=== PATIENT | female | born 1965 | race American Indian/Alaskan Native ===

== ENCOUNTER 2017-04-21 10:14 | Outpatient (CLI) | payer MEDICARE ==
--- NOTE | 2017-04-21 11:27 | XRay Report ---
CERVICAL SPINE: History: Cervicalgia. Views of the cervical spine demonstrate normal bony alignment, vertebral height and interspace distances. Oblique views show patent foramina and normal apophyseal joint alignment. The prevertebral soft tissues are not thickened. IMPRESSION: Cervical spine within normal limits.
--- NOTE | 2017-04-21 11:27 | XRay Report ---
ROUTINE CHEST, TWO VIEWS: HISTORY: Cough. The trachea, heart, mediastinal contour, lung cervantes and bony thorax are unremarkable. IMPRESSION: Unremarkable chest x-ray.
--- NOTE | 2017-04-21 11:28 | XRay Report ---
LUMBOSACRAL SPINE, FIVE VIEWS: HISTORY: Lower back pain. Mild levocurvature to the lumbar spine is identified. There is normal height and alignment of the vertebral bodies otherwise. There is partial sacralization of L5 which a congenital finding. No evidence for compression deformity, subluxation or bone lesion. The disc spaces are within normal limits. Minimal diffuse facet arthropathy is identified. The oblique images demonstrate no evidence for high-grade neural foraminal narrowing or partial defect. IMPRESSION: Mild levoscoliosis of the lumbar spine with mild degenerative changes. Congenital partial sacralization of L5.
== END 2017-04-21 10:15 | disposition home or self-care (01) ==
LOC: XRAY 10:14
PROVIDERS: ATTEND Urology
DX: M47.896 Other spondylosis, lumbar region (principal); M41.86 Other forms of scoliosis, lumbar region; M43.8X6 Other specified deforming dorsopathies, lumbar region; M12.88 Other specific arthropathies, not elsewhere classified, other specified site; M54.2 Cervicalgia; R05 Cough
CPT/HCPCS: 71046; 72050; 72110

== ENCOUNTER 2018-04-18 11:45 | Emergency (ER) | payer MEDICARE ==
[2018-04-18 11:50] VITALS: BP 155/92
--- NOTE | 2018-04-18 12:29 | Emergency Department Report ---
- General Chief Complaint: Upper Respiratory Infection Stated Complaint: FLU LIKE Time Seen by Provider: 04/18/18 12:18 Source: patient Mode of arrival: Ambulatory Limitations: No Limitations - History of Present Illness Initial Comments: Patient is a 52-year-old female who is complaining of cough congestion and body aches for the past 2 weeks. Patient states that her cough is nonproductive but she has been congested and feels that she could cough something up. Patient complaining of her ears popping as well. Patient states 2 days ago she had some vomiting but this is resolved. Patient has decreased appetite and some fatigue as well. Patient has a history of cigarette smoking. - Related Data Previous Rx's Medication Instructions Recorded Last Taken Type ALBUTEROL Inhaler (OR & NICU) 2 puff IH QID PRN #1 inhalation 07/28/14 Unknown Rx [ProAir HFA Inhaler] Azithromycin [Zithromax Z-ALEXUS] 250 mg PO DAILY #6 tablet 07/28/14 Unknown Rx Ibuprofen [Motrin] 800 mg PO Q8H PRN #30 tablet 07/28/14 Unknown Rx Prednisone [Prednisone 10 mg 10 mg PO .TAPER #1 tab.ds.pk 07/28/14 Unknown Rx (6-Day Pack, 21 Tabs)] Cyclobenzaprine [Flexeril 10 MG 10 mg PO TID PRN #15 tablet 10/20/14 Unknown Rx TAB] Ibuprofen [Motrin 800 MG tab] 800 mg PO Q8HR PRN #30 tablet 10/20/14 Unknown Rx Nitrofurantoin [place]/M-Cryst 100 mg PO Q12HR #14 capsule 12/26/15 Unknown Rx [Macrobid CAP] traMADol [Ultram] 50 mg PO Q6HR PRN #30 tablet 12/26/15 Unknown Rx ALBUTEROL Inhaler (OR & NICU) 2 puff IH QID PRN #1 inhalation 04/18/18 Unknown Rx [ProAir HFA Inhaler] Azithromycin [Zithromax Z-ALEXUS] 250 mg PO DAILY #6 tablet 04/18/18 Unknown Rx Fluticasone [Flonase] 1 spray NS QDAY #1 bottle 04/18/18 Unknown Rx HYDROcodone/APAP 5-325 [[place] 1 each PO Q4HR PRN #12 tablet 04/18/18 Unknown Rx 5/325] predniSONE [Deltasone] 20 mg PO QDAY #5 tab 04/18/18 Unknown Rx Allergies Allergy/AdvReac Type Severity Reaction Status Date / Time aspirin Allergy Hives Verified 04/18/18 11:48 ED Review of Systems ROS: Stated complaint: FLU LIKE Other details as noted in HPI Comment: All other systems reviewed and negative ED Past Medical Hx - Past Medical History Hx Asthma: Yes Additional medical history: CHRONIC BACK PAIN - Surgical History Additional Surgical History: X 3. RIGHT ARM SURGERY - Social History Smoking Status: Never Smoker Substance Use Type: None - Medications Home Medications: Home Medications Medication Instructions Recorded Confirmed Last Taken Type ALBUTEROL Inhaler (OR & NICU) 2 puff IH QID PRN #1 inhalation 07/28/14 Unknown Rx [ProAir HFA Inhaler] Azithromycin [Zithromax Z-ALEXUS] 250 mg PO DAILY #6 tablet 07/28/14 Unknown Rx Ibuprofen [Motrin] 800 mg PO Q8H PRN #30 tablet 07/28/14 Unknown Rx Prednisone [Prednisone 10 mg 10 mg PO .TAPER #1 tab.ds.pk 07/28/14 Unknown Rx (6-Day Pack, 21 Tabs)] Cyclobenzaprine [Flexeril 10 MG 10 mg PO TID PRN #15 tablet 10/20/14 Unknown Rx TAB] Ibuprofen [Motrin 800 MG tab] 800 mg PO Q8HR PRN #30 tablet 10/20/14 Unknown Rx Nitrofurantoin [place]/M-Cryst 100 mg PO Q12HR #14 capsule 12/26/15 Unknown Rx [Macrobid CAP] traMADol [Ultram] 50 mg PO Q6HR PRN #30 tablet 12/26/15 Unknown Rx ALBUTEROL Inhaler (OR & NICU) 2 puff IH QID PRN #1 inhalation 04/18/18 Unknown Rx [ProAir HFA Inhaler] Azithromycin [Zithromax Z-ALEXUS] 250 mg PO DAILY #6 tablet 04/18/18 Unknown Rx Fluticasone [Flonase] 1 spray NS QDAY #1 bottle 04/18/18 Unknown Rx HYDROcodone/APAP 5-325 [[place] 1 each PO Q4HR PRN #12 tablet 04/18/18 Unknown Rx 5/325] predniSONE [Deltasone] 20 mg PO QDAY #5 tab 04/18/18 Unknown Rx ED Physical Exam - General Limitations: No Limitations General appearance: alert, in no apparent distress - Head Head exam: Present: atraumatic, normocephalic - Eye Eye exam: Present: normal appearance, PERRL, EOMI - ENT ENT exam: Present: normal orophraynx, mucous membranes moist, TM's normal bilaterally - Neck Neck exam: Present: normal inspection - Respiratory Respiratory exam: Present: normal lung sounds bilaterally. Absent: respiratory distress, wheezes, rales, rhonchi, stridor, chest wall tenderness - Cardiovascular Cardiovascular Exam: Present: regular rate, normal rhythm, normal heart sounds. Absent: systolic murmur, diastolic murmur, rubs, gallop - GI/Abdominal GI/Abdominal exam: Present: soft, normal bowel sounds. Absent: distended, tenderness, guarding, rebound - Extremities Exam Extremities exam: Present: normal inspection - Back Exam Back exam: Present: normal inspection - Neurological Exam Neurological exam: Present: alert, oriented X3 - Psychiatric Psychiatric exam: Present: normal affect, normal mood - Skin Skin exam: Present: warm, dry, intact, normal color. Absent: rash ED Course Vital Signs 04/18/18 11:48 Temperature 97.9 F Pulse Rate 80 Respiratory 18 Rate Blood Pressure 155/92 O2 Sat by Pulse 100 Oximetry ED Medical Decision Making - Medical Decision Making Patient with flulike symptoms however her symptoms present for approximately 2 weeks. Patient's lungs are clear to auscultation and she is 100% on room air making pneumonia less likely however, the duration of symptoms patient will be started on Z-Alexus case there is a viral syndrome that now has had a superimposed bacterial infection. Patient given this was symptomatic relief she'll be discharged home. Critical care attestation.: If time is entered above; I have spent that time in minutes in the direct care of this critically ill patient, excluding procedure time. ED Disposition Clinical Impression: Upper respiratory infection Qualifiers: URI type: unspecified URI Qualified Code(s): J06.9 - Acute upper respiratory infection, unspecified Disposition: - TO HOME OR SELFCARE Is pt being admited?: No Does the pt Need Aspirin: No Condition: Stable Instructions: Upper Respiratory Infection (ED) Time of Disposition: 12:29
== END 2018-04-18 12:34 | disposition home or self-care (01) ==
LOC: ED 11:45
DX: J06.9 Acute upper respiratory infection, unspecified (principal); J45.909 Unspecified asthma, uncomplicated; Z88.6 Allergy status to analgesic agent
CPT/HCPCS: 99282

== ENCOUNTER 2018-08-11 07:39 | Emergency (ER) | payer MEDICARE ==
[2018-08-11 07:46] VITALS: BP 139/88
--- NOTE | 2018-08-11 08:27 | XRay Report ---
RIGHT HAND, 3 views: History: Pain and swelling after injury. The bony architecture is intact. Bony alignment is normal. No soft tissue abnormalities are seen. The joint spaces appear preserved. IMPRESSION: Normal right hand.
[2018-08-11] MEDS ORDERED: ZOFRAN ODT PO ONE (08:47)
[2018-08-11] MEDS ORDERED: TYLENOL #3 PO ONE (08:47)
--- NOTE | 2018-08-11 08:53 | Emergency Department Report ---
ED General Adult HPI - General Chief complaint: Extremity Injury, Upper Stated complaint: RT HAND INJURY/PAIN Time Seen by Provider: 08/11/18 08:24 Source: patient Mode of arrival: Ambulatory Limitations: No Limitations - History of Present Illness Initial comments: Patient presents to the emergency department with a chief complaint right hand pain. Patient states she was at the grocery store yesterday when a shelf fell onto her hand. Patient states she is able to move the hand but is very painful. -: Sudden Location: upper extremity Radiation: non-radiation Severity scale (0 -10): 6 Quality: sharp, constant Consistency: constant Improves with: rest Worsens with: movement Associated Symptoms: denies other symptoms Treatments Prior to Arrival: none - Related Data Previous Rx's Medication Instructions Recorded Last Taken Type ALBUTEROL Inhaler (OR & NICU) 2 puff IH QID PRN #1 inhalation 07/28/14 Unknown Rx [ProAir HFA Inhaler] Azithromycin [Zithromax Z-ALEXUS] 250 mg PO DAILY #6 tablet 07/28/14 Unknown Rx Ibuprofen [Motrin] 800 mg PO Q8H PRN #30 tablet 07/28/14 Unknown Rx Prednisone [Prednisone 10 mg 10 mg PO .TAPER #1 tab.ds.pk 07/28/14 Unknown Rx (6-Day Pack, 21 Tabs)] Cyclobenzaprine [Flexeril 10 MG 10 mg PO TID PRN #15 tablet 10/20/14 Unknown Rx TAB] Ibuprofen [Motrin 800 MG tab] 800 mg PO Q8HR PRN #30 tablet 10/20/14 Unknown Rx Nitrofurantoin [place]/M-Cryst 100 mg PO Q12HR #14 capsule 12/26/15 Unknown Rx [Macrobid CAP] traMADol [Ultram] 50 mg PO Q6HR PRN #30 tablet 12/26/15 Unknown Rx ALBUTEROL Inhaler (OR & NICU) 2 puff IH QID PRN #1 inhalation 04/18/18 Unknown Rx [ProAir HFA Inhaler] Azithromycin [Zithromax Z-ALEXUS] 250 mg PO DAILY #6 tablet 04/18/18 Unknown Rx Fluticasone [Flonase] 1 spray NS QDAY #1 bottle 04/18/18 Unknown Rx HYDROcodone/APAP 5-325 [[place] 1 each PO Q4HR PRN #12 tablet 04/18/18 Unknown Rx 5/325] predniSONE [Deltasone] 20 mg PO QDAY #5 tab 04/18/18 Unknown Rx Acetaminophen/Codeine [Tylenol 1 tab PO Q6H PRN #15 tab 08/11/18 Unknown Rx /Codeine # 3 tab] Allergies Allergy/AdvReac Type Severity Reaction Status Date / Time aspirin Allergy Hives Verified 04/18/18 11:48 ED Review of Systems ROS: Stated complaint: RT HAND INJURY/PAIN Other details as noted in HPI Constitutional: denies: chills, fever Eyes: denies: eye pain, eye discharge, vision change ENT: denies: ear pain, throat pain Respiratory: denies: cough, shortness of breath, wheezing Cardiovascular: denies: chest pain, palpitations Endocrine: no symptoms reported Gastrointestinal: denies: abdominal pain, nausea, diarrhea Genitourinary: denies: urgency, dysuria, discharge Musculoskeletal: other (right hand). denies: back pain, joint swelling, arthralgia Skin: denies: rash, lesions Neurological: denies: headache, weakness, paresthesias Psychiatric: denies: anxiety, depression Hematological/Lymphatic: denies: easy bleeding, easy bruising ED Past Medical Hx - Past Medical History Previous Medical History?: Yes Hx Asthma: Yes Additional medical history: CHRONIC BACK PAIN - Surgical History Past Surgical History?: Yes Additional Surgical History: X 3. RIGHT ARM SURGERY - Social History Smoking Status: Never Smoker Substance Use Type: None - Medications Home Medications: Home Medications Medication Instructions Recorded Confirmed Last Taken Type ALBUTEROL Inhaler (OR & NICU) 2 puff IH QID PRN #1 inhalation 07/28/14 Unknown Rx [ProAir HFA Inhaler] Azithromycin [Zithromax Z-ALEXUS] 250 mg PO DAILY #6 tablet 07/28/14 Unknown Rx Ibuprofen [Motrin] 800 mg PO Q8H PRN #30 tablet 07/28/14 Unknown Rx Prednisone [Prednisone 10 mg 10 mg PO .TAPER #1 tab.ds.pk 07/28/14 Unknown Rx (6-Day Pack, 21 Tabs)] Cyclobenzaprine [Flexeril 10 MG 10 mg PO TID PRN #15 tablet 10/20/14 Unknown Rx TAB] Ibuprofen [Motrin 800 MG tab] 800 mg PO Q8HR PRN #30 tablet 10/20/14 Unknown Rx Nitrofurantoin [place]/M-Cryst 100 mg PO Q12HR #14 capsule 12/26/15 Unknown Rx [Macrobid CAP] traMADol [Ultram] 50 mg PO Q6HR PRN #30 tablet 12/26/15 Unknown Rx ALBUTEROL Inhaler (OR & NICU) 2 puff IH QID PRN #1 inhalation 04/18/18 Unknown Rx [ProAir HFA Inhaler] Azithromycin [Zithromax Z-ALEXUS] 250 mg PO DAILY #6 tablet 04/18/18 Unknown Rx Fluticasone [Flonase] 1 spray NS QDAY #1 bottle 04/18/18 Unknown Rx HYDROcodone/APAP 5-325 [[place] 1 each PO Q4HR PRN #12 tablet 04/18/18 Unknown Rx 5/325] predniSONE [Deltasone] 20 mg PO QDAY #5 tab 04/18/18 Unknown Rx Acetaminophen/Codeine [Tylenol 1 tab PO Q6H PRN #15 tab 08/11/18 Unknown Rx /Codeine # 3 tab] ED Physical Exam - General Limitations: No Limitations General appearance: alert, in no apparent distress - Head Head exam: Present: atraumatic, normocephalic - ENT ENT exam: Present: mucous membranes moist - Neck Neck exam: Present: normal inspection - Respiratory Respiratory exam: Present: normal lung sounds bilaterally. Absent: respiratory distress - Cardiovascular Cardiovascular Exam: Present: regular rate, normal rhythm, other (patient has good radial and ulnar pulses). Absent: systolic murmur, diastolic murmur, rubs, gallop - Extremities Exam Extremities exam: Present: other (TTP of the metacarpels of the right hand; mild swelling; no ttp of anatomical snuff box) - Back Exam Back exam: Present: normal inspection - Neurological Exam Neurological exam: Present: alert, oriented X3, CN II-XII intact. Absent: motor sensory deficit - Psychiatric Psychiatric exam: Present: normal affect, normal mood - Skin Skin exam: Present: warm, dry, intact, normal color. Absent: rash ED Course Vital Signs 08/11/18 07:40 Temperature 98.1 F Pulse Rate 80 Respiratory 16 Rate Blood Pressure 139/88 O2 Sat by Pulse 100 Oximetry ED Medical Decision Making - Medical Decision Making Discussed results with patient Fredo wrap placed Critical care attestation.: If time is entered above; I have spent that time in minutes in the direct care of this critically ill patient, excluding procedure time. ED Disposition Clinical Impression: Hand pain Disposition: [id number]-01 TO HOME OR SELFCARE Is pt being admited?: No Does the pt Need Aspirin: No Condition: Stable Instructions: Hand Sprain (ED) Additional Instructions: return if worse Prescriptions: Acetaminophen/Codeine [Tylenol /Codeine # 3 tab] 1 tab PO Q6H PRN #15 tab PRN Reason: pain Referrals: LYNETTE PRESLEY MD [Primary Care Provider] - 3-5 Days [facility] [Provider Group] - 3-5 Days [facility] [Provider Group] - 3-5 Days Time of Disposition: 08:52
== END 2018-08-11 09:15 | disposition home or self-care (01) ==
LOC: ED 07:39
DX: M79.641 Pain in right hand (principal); J45.909 Unspecified asthma, uncomplicated; M54.9 Dorsalgia, unspecified; G89.29 Other chronic pain; Z88.6 Allergy status to analgesic agent
CPT/HCPCS: 99283; Q0162

== ENCOUNTER 2018-12-28 10:37 | Emergency (ER) | payer MEDICARE ==
[2018-12-28] MEDS ORDERED: MORPHINE 4 MG/1 ML INJ IV ONE ×2 (12:25→15:26)
[2018-12-28] MEDS ORDERED: ONDANSETRON 4 MG/2 ML INJ IV ONE (12:25)
[2018-12-28] MEDS ORDERED: SODIUM CHLORIDE 0.9% 1000 ML 1,000 ML IV ONE (12:25)
--- NOTE | 2018-12-28 12:27 | Emergency Department Report ---
ED General Adult HPI - General Chief complaint: Abdominal Pain Stated complaint: POSS KIDNEY STONES/PAIN Time Seen by Provider: 12/28/18 11:39 Source: patient Mode of arrival: Ambulatory Limitations: No Limitations - History of Present Illness Initial comments: She presents to emergency department with a chief complaint of right flank pain that has been present for the last 3 days. Patient describes the pain as sharp in nature with radiation into her groin. Patient denies any chest pain, shortness of breath, or headache. -: Sudden Location: abdomen Radiation: other (groin) Severity scale (0 -10): 8 Quality: sharp Consistency: constant, colicky Improves with: none Worsens with: none Associated Symptoms: denies other symptoms Treatments Prior to Arrival: none - Related Data Previous Rx's Medication Instructions Recorded Last Taken Type ALBUTEROL Inhaler (OR & NICU) 2 puff IH QID PRN #1 inhalation 07/28/14 Unknown Rx [ProAir HFA Inhaler] Azithromycin [Zithromax Z-ALEXUS] 250 mg PO DAILY #6 tablet 07/28/14 Unknown Rx Ibuprofen [Motrin] 800 mg PO Q8H PRN #30 tablet 07/28/14 Unknown Rx Prednisone [Prednisone 10 mg 10 mg PO .TAPER #1 tab.ds.pk 07/28/14 Unknown Rx (6-Day Pack, 21 Tabs)] Cyclobenzaprine [Flexeril 10 MG 10 mg PO TID PRN #15 tablet 10/20/14 Unknown Rx TAB] Ibuprofen [Motrin 800 MG tab] 800 mg PO Q8HR PRN #30 tablet 10/20/14 Unknown Rx Nitrofurantoin [place]/M-Cryst 100 mg PO Q12HR #14 capsule 12/26/15 Unknown Rx [Macrobid CAP] traMADol [Ultram] 50 mg PO Q6HR PRN #30 tablet 12/26/15 Unknown Rx ALBUTEROL Inhaler (OR & NICU) 2 puff IH QID PRN #1 inhalation 04/18/18 Unknown Rx [ProAir HFA Inhaler] Azithromycin [Zithromax Z-ALEXUS] 250 mg PO DAILY #6 tablet 04/18/18 Unknown Rx Fluticasone [Flonase] 1 spray NS QDAY #1 bottle 04/18/18 Unknown Rx HYDROcodone/APAP 5-325 [[place] 1 each PO Q4HR PRN #12 tablet 04/18/18 Unknown Rx 5/325] predniSONE [Deltasone] 20 mg PO QDAY #5 tab 04/18/18 Unknown Rx Acetaminophen/Codeine [Tylenol 1 tab PO Q6H PRN #15 tab 08/11/18 Unknown Rx /Codeine # 3 tab] HYDROcodone/APAP 7.5-325 [[place] 1 each PO Q6HR PRN #15 tablet 12/28/18 Unknown Rx 7.5/325] Ondansetron [Zofran Odt] 4 mg PO Q4HR PRN #20 tab.rapdis 12/28/18 Unknown Rx Promethazine [Phenergan TAB] 25 mg PO Q6HR PRN #20 tab 12/28/18 Unknown Rx Allergies Allergy/AdvReac Type Severity Reaction Status Date / Time acetaminophen [From Tylenol] Allergy Unknown Verified 12/28/18 11:01 aspirin Allergy Hives Verified 04/18/18 11:48 ED Review of Systems ROS: Stated complaint: POSS KIDNEY STONES/PAIN Other details as noted in HPI Comment: All other systems reviewed and negative Constitutional: denies: chills, fever Eyes: denies: eye pain, eye discharge, vision change ENT: denies: ear pain, throat pain Respiratory: denies: cough, shortness of breath, wheezing Cardiovascular: denies: chest pain, palpitations Endocrine: no symptoms reported Gastrointestinal: abdominal pain, nausea. denies: diarrhea Genitourinary: denies: urgency, dysuria, discharge Musculoskeletal: denies: back pain, joint swelling, arthralgia Skin: denies: rash, lesions Neurological: denies: headache, weakness, paresthesias Psychiatric: denies: anxiety, depression Hematological/Lymphatic: denies: easy bleeding, easy bruising ED Past Medical Hx - Past Medical History Previous Medical History?: Yes Hx Asthma: Yes Additional medical history: CHRONIC BACK PAIN - Surgical History Past Surgical History?: Yes Additional Surgical History: X 3. RIGHT ARM SURGERY - Social History Smoking Status: Never Smoker Substance Use Type: None - Medications Home Medications: Home Medications Medication Instructions Recorded Confirmed Last Taken Type ALBUTEROL Inhaler (OR & NICU) 2 puff IH QID PRN #1 inhalation 07/28/14 Unknown Rx [ProAir HFA Inhaler] Azithromycin [Zithromax Z-ALEXUS] 250 mg PO DAILY #6 tablet 07/28/14 Unknown Rx Ibuprofen [Motrin] 800 mg PO Q8H PRN #30 tablet 07/28/14 Unknown Rx Prednisone [Prednisone 10 mg 10 mg PO .TAPER #1 tab.ds.pk 07/28/14 Unknown Rx (6-Day Pack, 21 Tabs)] Cyclobenzaprine [Flexeril 10 MG 10 mg PO TID PRN #15 tablet 10/20/14 Unknown Rx TAB] Ibuprofen [Motrin 800 MG tab] 800 mg PO Q8HR PRN #30 tablet 10/20/14 Unknown Rx Nitrofurantoin [place]/M-Cryst 100 mg PO Q12HR #14 capsule 12/26/15 Unknown Rx [Macrobid CAP] traMADol [Ultram] 50 mg PO Q6HR PRN #30 tablet 12/26/15 Unknown Rx ALBUTEROL Inhaler (OR & NICU) 2 puff IH QID PRN #1 inhalation 04/18/18 Unknown Rx [ProAir HFA Inhaler] Azithromycin [Zithromax Z-ALEXUS] 250 mg PO DAILY #6 tablet 04/18/18 Unknown Rx Fluticasone [Flonase] 1 spray NS QDAY #1 bottle 04/18/18 Unknown Rx HYDROcodone/APAP 5-325 [[place] 1 each PO Q4HR PRN #12 tablet 04/18/18 Unknown Rx 5/325] predniSONE [Deltasone] 20 mg PO QDAY #5 tab 04/18/18 Unknown Rx Acetaminophen/Codeine [Tylenol 1 tab PO Q6H PRN #15 tab 08/11/18 Unknown Rx /Codeine # 3 tab] HYDROcodone/APAP 7.5-325 [[place] 1 each PO Q6HR PRN #15 tablet 12/28/18 Unknown Rx 7.5/325] Ondansetron [Zofran Odt] 4 mg PO Q4HR PRN #20 tab.rapdis 12/28/18 Unknown Rx Promethazine [Phenergan TAB] 25 mg PO Q6HR PRN #20 tab 12/28/18 Unknown Rx ED Physical Exam - General Limitations: No Limitations General appearance: alert, in no apparent distress - Head Head exam: Present: atraumatic, normocephalic - Eye Eye exam: Present: normal appearance, PERRL, EOMI - ENT ENT exam: Present: mucous membranes dry - Neck Neck exam: Present: normal inspection - Respiratory Respiratory exam: Present: normal lung sounds bilaterally. Absent: respiratory distress - Cardiovascular Cardiovascular Exam: Present: regular rate, normal rhythm. Absent: systolic murmur, diastolic murmur, rubs, gallop - GI/Abdominal GI/Abdominal exam: Present: soft, tenderness (right flank tenderness to palpation as well as TTP RUQ), normal bowel sounds. Absent: distended - Extremities Exam Extremities exam: Present: normal inspection - Back Exam Back exam: Present: normal inspection - Neurological Exam Neurological exam: Present: alert, oriented X3 - Psychiatric Psychiatric exam: Present: normal affect, normal mood - Skin Skin exam: Present: warm, dry, intact, normal color. Absent: rash ED Course Vital Signs 12/28/18 10:58 Temperature 98.4 F Pulse Rate 95 H Respiratory 20 Rate Blood Pressure 120/88 O2 Sat by Pulse 95 Oximetry ED Medical Decision Making - Lab Data Result diagrams: 12/28/18 14:21 12/28/18 14:21 Lab Results 12/28/18 12/28/18 12/28/18 Range/Units 11:38 14:21 14:21 WBC 6.0 (4.5-11.0) K/mm3 RBC 4.57 (3.65-5.03) M/mm3 Hgb 13.5 (10.1-14.3) gm/dl Hct 41.4 (30.3-42.9) % MCV 91 (79-97) fl MCH 30 (28-32) pg MCHC 33 (30-34) % RDW 13.9 (13.2-15.2) % Plt Count 231 (140-440) K/mm3 Lymph % (Auto) 46.7 H (13.4-35.0) % [place] % (Auto) 8.0 H (0.0-7.3) % Eos % (Auto) 1.2 (0.0-4.3) % Baso % (Auto) 1.1 (0.0-1.8) % Lymph # 2.8 (1.2-5.4) K/mm3 [place] # 0.5 (0.0-0.8) K/mm3 Eos # 0.1 (0.0-0.4) K/mm3 Baso # 0.1 (0.0-0.1) K/mm3 Seg Neutrophils % 43.0 (40.0-70.0) % Seg Neutrophils # 2.6 (1.8-7.7) K/mm3 Sodium 142 (137-145) mmol/L Potassium 3.8 (3.6-5.0) mmol/L Chloride 106.0 (98-107) mmol/L Carbon Dioxide 25 (22-30) mmol/L Anion Gap 15 mmol/L BUN 9 (7-17) mg/dL Creatinine 0.8 (0.7-1.2) mg/dL Estimated GFR > 60 ml/min BUN/Creatinine Ratio 11 % Glucose 76 (65-100) mg/dL Calcium 8.5 (8.4-10.2) mg/dL Total Bilirubin 0.30 (0.1-1.2) mg/dL AST 16 (5-40) units/L ALT 6 L (7-56) units/L Alkaline Phosphatase 85 (35-129) units/L Total Protein 6.2 L (6.3-8.2) g/dL Albumin 4.0 (3.9-5) g/dL Albumin/Globulin Ratio 1.8 % Lipase 13 (13-60) units/L Urine Color Yellow (Yellow) Urine Turbidity Slightly-cloudy (Clear) Urine pH 5.0 (5.0-7.0) Ur Specific [place] 1.023 (1.003-1.030) Urine Protein <15 mg/dl (Negative) mg/dL Urine Glucose (UA) Neg (Negative) mg/dL Urine Ketones Neg (Negative) mg/dL Urine Blood Mod (Negative) Urine Nitrite Neg (Negative) Urine Bilirubin Neg (Negative) Urine Urobilinogen < 2.0 (<2.0) mg/dL Ur Leukocyte Esterase Neg (Negative) Urine WBC (Auto) 3.0 (0.0-6.0) /HPF Urine RBC (Auto) 1.0 (0.0-6.0) /HPF U Epithel Cells (Auto) 1.0 (0-13.0) /HPF Calcium Oxalate Crystal 2+ Urine Mucus 2+ /HPF - Radiology Data Radiology results: report reviewed - Medical Decision Making CAT scan of the abdomen was reviewed as listed to ultrasound of the right upper quadrant which shows sludge and possible stones Notes were discussed with patient and the need for follow-up After discussing the ultrasound findings with the patient that for the last couple of weeks pain has gotten worse after eating dairy products, frightful, fatty foods Patient denies having a history of allergies to Tylenol and states that she just does not like the way it makes her mouth fill(after taste) Critical care attestation.: If time is entered above; I have spent that time in minutes in the direct care of this critically ill patient, excluding procedure time. ED Disposition Clinical Impression: Biliary colic Disposition: TO HOME OR SELFCARE Is pt being admited?: No Condition: Stable Instructions: Biliary Colic (ED), Abdominal Pain (ED) Additional Instructions: return if worse Prescriptions: HYDROcodone/APAP 7.5-325 [[place] 7.5/325] 1 each PO Q6HR PRN #15 tablet PRN Reason: Pain Promethazine [Phenergan TAB] 25 mg PO Q6HR PRN #20 tab PRN Reason: Nausea Ondansetron [Zofran Odt] 4 mg PO Q4HR PRN #20 tab.rapdis PRN Reason: Nausea Referrals: PRIMARY CARE, [Primary Care Provider] - 3-5 Days BHAVESH MICHEL DO [Staff Physician] - 3-5 Days [facility] [Provider Group] - 3-5 Days [facility] [Provider Group] - 3-5 Days Time of Disposition: 17:04
[2018-12-28 12:36] LABS: Bilirubin,Urine NEG (Negative); Blood,Urine MOD (Negative); Calcium Oxalate Crystals,Urine 2+; Color,Urine Yellow (Yellow); Mucus,Urine 2+ /HPF; Protein,Urine <15 mg/dL mg/dL (Negative); Urobilinogen,Urine < 2.0 mg/dL (<2.0)
--- NOTE | 2018-12-28 14:47 | Cat Scan Report ---
CT ABDOMEN AND PELVIS WITHOUT CONTRAST HISTORY: right flank pain COMPARISON: 10/10/2017 TECHNIQUE: Axial CT images were obtained through the abdomen and pelvis without IV contrast. Sagittal and coronal reformatted images. All CT scans at this location are performed using CT dose reduction for ALARA by means of automated exposure control. FINDINGS: CT ABDOMEN: Lung Bases: Clear. Liver: No significant abnormality. Biliary: Sludge or noncalcified stones are suspected in the gallbladder neck. No evidence for acute c holecystitis. Spleen: No significant abnormality. Unenlarged. Pancreas: No significant abnormality. Adrenals: No significant abnormality. Kidneys: A 4-5 cm slightly complex cyst is identified at the inferior pole of the right kidney. This cyst contains subtle linear calcifications. The left kidney is unremarkable. No evidence for hydronep hrosis or nephrolithiasis. The ureters are normal course and caliber. Lymphatics: No lymphadenopathy. Vasculature: No significant abnormality. Bowel/Peritoneum: No significant abnormality. No free air. No free fluid. Normal appendix CT PELVIS: : No significant abnormality. Osseous Structures: No significant abnormality. Additional Findings: None IMPRESSION: Cholelithiasis. No evidence for acute cholecystitis. Slightly complex right renal cyst. No hydronephrosis or nephrolithiasis. Signer Name: Praveen Harrison Jr, MD Signed: 12/28/2018 2:43 PM Workstation Name: [id number]
[2018-12-28 14:49] LABS: Basophils # (Auto) 0.1 K/mm3 (0.0-0.1); Basophils % (Auto) 1.1 % (0.0-1.8); Eosinophils # (Auto) 0.1 K/mm3 (0.0-0.4); Eosinophils % (Auto) 1.2 % (0.0-4.3); Hematocrit 41.4 % (30.3-42.9); Hemoglobin 13.5 gm/dl (10.1-14.3); Lymphocytes # (Auto) 2.8 K/mm3 (1.2-5.4); Lymphocytes % (Auto) 46.7 % (13.4-35.0); Mean Corpuscular HGB Conc 33 % (30-34); Mean Corpuscular Volume 91 fl (79-97); Monocytes # (Auto) 0.5 K/mm3 (0.0-0.8); Platelet Count 231 K/mm3 (140-440); Red Blood Count 4.57 M/mm3 (3.65-5.03); Red Cell Distribution Width 13.9 % (13.2-15.2)
[2018-12-28 15:13] LABS: Alanine Aminotransferase 6 units/L (7-56); BUN/Creatinine Ratio 11; Blood Urea Nitrogen 9 mg/dL (7-17); Calcium 8.5 mg/dL (8.4-10.2); Hemolysis Index 27
--- NOTE | 2018-12-28 16:54 | Ultrasound Report ---
LIMITED RUQ ABDOMINAL ULTRASOUND INDICATION: STONES AT NECK OF GB ON CT RESULTS. COMPARISON: CT abdomen/pelvis from today. FINDINGS: Pancreas: Visualized portions show no significant abnormality. Abdominal Aorta: No significant abnormality. IVC: No significant abnormality. Liver: The liver measures 12.9 cm in length. No significant abnormality. Normal hepatopedal blood fl ow in the main portal vein. Gallbladder: Small amount of layering biliary sludge and microlithiasis is present. Bile ducts: No significant abnormality. Common bile duct measures 4 mm. Right kidney: There is a 3 mm nonobstructive calyceal stone in the mid pole of the right kidney. Ther e is also a cyst arising from the lower pole the right kidney measuring 6.4 cm in maximal dimension w ith at least one thin internal septation. Free fluid: None. Additional Findings: None. IMPRESSION: 1. 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 2. 3 mm nonobstructive calyceal stone in the midpole the right kidney. 3. Minimal biliary sludge/layering microlithiasis in the gallbladder. Signer Name: Ponce Kim MD Signed: 12/28/2018 4:49 PM Workstation Name: [id number]
[2018-12-28 17:26] VITALS: BP 116/84
== END 2018-12-28 17:26 | disposition home or self-care (01) ==
LOC: ED 10:37
DX: K80.50 Calculus of bile duct without cholangitis or cholecystitis without obstruction (principal); G89.29 Other chronic pain; J45.909 Unspecified asthma, uncomplicated; Z79.899 Other long term (current) drug therapy; Z98.890 Other specified postprocedural states; Z88.6 Allergy status to analgesic agent
CPT/HCPCS: 36415; 74176; 76705; 80053; 81001; 83690; 85025; 96361; 96374; 96375; 96376; 99284; J2270; J2405; J7030

== ENCOUNTER 2018-12-29 10:59 | Emergency (ER) | payer MEDICARE | END 2018-12-29 11:25 | disposition left against medical advice (07) | LOC: ED 10:59 | DX: N20.0 Calculus of kidney (principal); Z53.21 Procedure and treatment not carried out due to patient leaving prior to being seen by health care provider ==

== ENCOUNTER 2019-12-26 02:54 | Emergency (ER) | payer MEDICARE ==
[2019-12-26 03:13] VITALS: BP 154/101
--- NOTE | 2019-12-26 04:16 | XRay Report ---
RIGHT FOOT 3 VIEW INDICATION / CLINICAL INFORMATION: right great toe. COMPARISON: None available. FINDINGS: BONES/JOINT(S): No acute fracture or subluxation. Mild DJD first MTP joint. No focal bone lysis. SOFT TISSUES: No radiopaque foreign bodies or soft tissue gas. ADDITIONAL FINDINGS: None. Signer Name: Param Rollins MD Signed: 12/26/2019 4:11 AM Workstation Name: [id number]
--- NOTE | 2019-12-26 05:21 | Emergency Department Report ---
ED General Adult HPI - General Chief complaint: Extremity Injury, Lower Stated complaint: STOMP RIGHT TOE Time Seen by Provider: 12/26/19 04:54 Source: patient Mode of arrival: Ambulatory Limitations: No Limitations - History of Present Illness Severity scale (0 -10): 9 - Related Data Previous Rx's Medication Instructions Recorded Last Taken Type Albuterol Mdi (or & Nicu Only) 2 puff IH QID PRN #1 inhalation 07/28/14 Unknown Rx [ProAir HFA Inhaler] Azithromycin [Zithromax Z-ALEXUS] 250 mg PO DAILY #6 tablet 07/28/14 Unknown Rx Ibuprofen [Motrin] 800 mg PO Q8H PRN #30 tablet 07/28/14 Unknown Rx Prednisone [Prednisone 10 mg 10 mg PO .TAPER #1 tab.ds.pk 07/28/14 Unknown Rx (6-Day Pack, 21 Tabs)] Cyclobenzaprine [Flexeril 10 MG 10 mg PO TID PRN #15 tablet 10/20/14 Unknown Rx TAB] Ibuprofen [Motrin 800 MG tab] 800 mg PO Q8HR PRN #30 tablet 10/20/14 Unknown Rx Nitrofurantoin [place]/M-Cryst 100 mg PO Q12HR #14 capsule 12/26/15 Unknown Rx [Macrobid CAP] traMADoL [Ultram] 50 mg PO Q6HR PRN #30 tablet 12/26/15 Unknown Rx Albuterol Mdi (or & Nicu Only) 2 puff IH QID PRN #1 inhalation 04/18/18 Unknown Rx [ProAir HFA Inhaler] Azithromycin [Zithromax Z-ALEXUS] 250 mg PO DAILY #6 tablet 04/18/18 Unknown Rx Fluticasone [Flonase] 1 spray NS QDAY #1 bottle 04/18/18 Unknown Rx HYDROcodone/APAP 5-325 [[place] 1 each PO Q4HR PRN #12 tablet 04/18/18 Unknown Rx 5/325] predniSONE [Deltasone] 20 mg PO QDAY #5 tab 04/18/18 Unknown Rx Acetaminophen/Codeine [Tylenol 1 tab PO Q6H PRN #15 tab 08/11/18 Unknown Rx /Codeine # 3 tab] HYDROcodone/APAP 7.5-325 [[place] 1 each PO Q6HR PRN #15 tablet 12/28/18 Unknown Rx 7.5/325] Ondansetron [Zofran Odt] 4 mg PO Q4HR PRN #20 tab.rapdis 12/28/18 Unknown Rx Promethazine [Phenergan TAB] 25 mg PO Q6HR PRN #20 tab 12/28/18 Unknown Rx Allergies Allergy/AdvReac Type Severity Reaction Status Date / Time acetaminophen [From Tylenol] Allergy Unknown Verified 12/28/18 11:01 aspirin Allergy Hives Verified 04/18/18 11:48 ED Review of Systems ROS: Stated complaint: STOMP RIGHT TOE Other details as noted in HPI ED Past Medical Hx - Past Medical History Previous Medical History?: Yes Hx Asthma: Yes Additional medical history: CHRONIC BACK PAIN - Surgical History Past Surgical History?: Yes Additional Surgical History: X 3. RIGHT ARM SURGERY - Social History Smoking Status: Current Every Day Smoker Substance Use Type: None - Medications Home Medications: Home Medications Medication Instructions Recorded Confirmed Last Taken Type Albuterol Mdi (or & Nicu Only) 2 puff IH QID PRN #1 inhalation 07/28/14 Unknown Rx [ProAir HFA Inhaler] Azithromycin [Zithromax Z-ALEXUS] 250 mg PO DAILY #6 tablet 07/28/14 Unknown Rx Ibuprofen [Motrin] 800 mg PO Q8H PRN #30 tablet 07/28/14 Unknown Rx Prednisone [Prednisone 10 mg 10 mg PO .TAPER #1 tab.ds.pk 07/28/14 Unknown Rx (6-Day Pack, 21 Tabs)] Cyclobenzaprine [Flexeril 10 MG 10 mg PO TID PRN #15 tablet 10/20/14 Unknown Rx TAB] Ibuprofen [Motrin 800 MG tab] 800 mg PO Q8HR PRN #30 tablet 10/20/14 Unknown Rx Nitrofurantoin [place]/M-Cryst 100 mg PO Q12HR #14 capsule 12/26/15 Unknown Rx [Macrobid CAP] traMADoL [Ultram] 50 mg PO Q6HR PRN #30 tablet 12/26/15 Unknown Rx Albuterol Mdi (or & Nicu Only) 2 puff IH QID PRN #1 inhalation 04/18/18 Unknown Rx [ProAir HFA Inhaler] Azithromycin [Zithromax Z-ALEXUS] 250 mg PO DAILY #6 tablet 04/18/18 Unknown Rx Fluticasone [Flonase] 1 spray NS QDAY #1 bottle 04/18/18 Unknown Rx HYDROcodone/APAP 5-325 [Sal[place] 1 each PO Q4HR PRN #12 tablet 04/18/18 Unknown Rx 5/325] predniSONE [Deltasone] 20 mg PO QDAY #5 tab 04/18/18 Unknown Rx Acetaminophen/Codeine [Tylenol 1 tab PO Q6H PRN #15 tab 08/11/18 Unknown Rx /Codeine # 3 tab] HYDROcodone/APAP 7.5-325 [Saline 1 each PO Q6HR PRN #15 tablet 12/28/18 Unknown Rx 7.5/325] Ondansetron [Zofran Odt] 4 mg PO Q4HR PRN #20 tab.rapdis 12/28/18 Unknown Rx Promethazine [Phenergan TAB] 25 mg PO Q6HR PRN #20 tab 12/28/18 Unknown Rx ED Physical Exam - General Limitations: No Limitations ED Course Vital Signs 12/26/19 03:12 Temperature 98.6 F Pulse Rate 118 H Respiratory 20 Rate Blood Pressure 154/101 [Right] O2 Sat by Pulse 93 Oximetry ED Medical Decision Making - Radiology Data Radiology results: report reviewed RIGHT FOOT 3 VIEW INDICATION / CLINICAL INFORMATION: right great toe. COMPARISON: None available. FINDINGS: BONES/JOINT(S): No acute fracture or subluxation. Mild DJD first MTP joint. No focal bone lysis. SOFT TISSUES: No radiopaque foreign bodies or soft tissue gas. ADDITIONAL FINDINGS: None. Critical care attestation.: If time is entered above; I have spent that time in minutes in the direct care of this critically ill patient, excluding procedure time. ED Disposition Condition: Stable Referrals: PRIMARY CARE, [Primary Care Provider] - 3-5 Days
== END 2019-12-26 07:47 | disposition left against medical advice (07) ==
LOC: ED 02:54
DX: M79.674 Pain in right toe(s) (principal); Z53.21 Procedure and treatment not carried out due to patient leaving prior to being seen by health care provider

== ENCOUNTER 2020-09-10 13:36 | Emergency (ER) | payer MEDICARE ==
[2020-09-10] MEDS ORDERED: SODIUM CHLORIDE 0.9% 1000 ML 1,000 ML IV ONE ×3 (14:21→15:29)
--- NOTE | 2020-09-10 14:27 | Emergency Department Report ---
HPI - General Time Seen by Provider: 09/10/20 14:09 - HPI HPI: 54-year-old female brought in by EMS due to ongoing nausea/vomiting and multiple stools today. The patient states that since waking up this morning she has had generalized abdominal pain and the urge to defecate. She says she was in the bathroom trying to have a bowel movement and at one point either lost consciou sness or lost her balance (she does not fully remember) and fell backwards, hitting the back of her head on the floor. She states that since then she has had too many episodes of vomiting to count. She continues to have generalized abdominal pain as well. The patient is retching during examination and it is very difficult to get details of the HPI due to her current clinical condition. Of note, the patient has history of chronic back pain and normally takes oxycodone 10mg 5x/day but has been out of it for the past 5 days. She denies any chest pain, cough, shortness of breath, melena/hematochezia. ED Past Medical Hx - Past Medical History Hx Asthma: Yes Additional medical history: CHRONIC BACK PAIN - Surgical History Additional Surgical History: X 3. RIGHT ARM SURGERY - Social History Smoking Status: Current Every Day Smoker Substance Use Type: None - Medications Home Medications: Home Medications Medication Instructions Recorded Confirmed Last Taken Type Albuterol Mdi (or & Nicu Only) 2 puff IH QID PRN #1 inhalation 07/28/14 Unknown Rx [ProAir HFA Inhaler] Azithromycin [Zithromax Z-ALEXUS] 250 mg PO DAILY #6 tablet 07/28/14 Unknown Rx Ibuprofen [Motrin] 800 mg PO Q8H PRN #30 tablet 07/28/14 Unknown Rx Prednisone [Prednisone 10 mg 10 mg PO .TAPER #1 tab.ds.pk 07/28/14 Unknown Rx (6-Day Pack, 21 Tabs)] Cyclobenzaprine [Flexeril 10 MG 10 mg PO TID PRN #15 tablet 10/20/14 Unknown Rx TAB] Ibuprofen [Motrin 800 MG tab] 800 mg PO Q8HR PRN #30 tablet 10/20/14 Unknown Rx Nitrofurantoin [place]/M-Cryst 100 mg PO Q12HR #14 capsule 12/26/15 Unknown Rx [Macrobid CAP] traMADoL [Ultram] 50 mg PO Q6HR PRN #30 tablet 12/26/15 Unknown Rx Albuterol Mdi (or & Nicu Only) 2 puff IH QID PRN #1 inhalation 04/18/18 Unknown Rx [ProAir HFA Inhaler] Azithromycin [Zithromax Z-ALEXUS] 250 mg PO DAILY #6 tablet 04/18/18 Unknown Rx Fluticasone [Flonase] 1 spray NS QDAY #1 bottle 04/18/18 Unknown Rx HYDROcodone/APAP 5-325 [[place] 1 each PO Q4HR PRN #12 tablet 04/18/18 Unknown Rx 5/325] predniSONE [Deltasone] 20 mg PO QDAY #5 tab 04/18/18 Unknown Rx Acetaminophen/Codeine [Tylenol 1 tab PO Q6H PRN #15 tab 08/11/18 Unknown Rx /Codeine # 3 tab] HYDROcodone/APAP 7.5-325 [[place] 1 each PO Q6HR PRN #15 tablet 12/28/18 Unknown Rx 7.5/325] Ondansetron [Zofran Odt] 4 mg PO Q4HR PRN #20 tab.rapdis 12/28/18 Unknown Rx Promethazine [Phenergan TAB] 25 mg PO Q6HR PRN #20 tab 12/28/18 Unknown Rx ED Review of Systems ROS: Stated complaint: N/V/D/ Other details as noted in HPI Comment: Unobtainable due to pts medical conditions Physical Exam - Physical Exam Physical Exam: GENERAL: Well developed and well nourished. In acute distress, actively retching/dry heaving HEENT: Normocephalic. There are no obvious signs of trauma although there may be a contusion to the posterior occiput which is difficult to appreciate due to the patient's hair. No lacerations or abrasions seen. EYES: Extraocular movements are intact. Pupils are equal round and reactive to light bilaterally NECK: Supple. Trachea is midline. LUNGS: Nonlabored breathing. Equal chest rise bilaterally. Clear to auscultation bilaterally. HEART/CARDIOVASCULAR: Regular rate and rhythm. No murmurs or rubs. ABDOMEN: Abdomen is soft and nondistended. There is diffuse tenderness to palpation throughout all four quadrants but without guarding or rebound t enderness. SKIN: Skin is warm and dry NEURO: Patient is awake but somnolent and slow to answer. passenger coach driver II-XII grossly intact. No focal deficits. Uncooperative with motor/sensory exam. MUSCULOSKELETAL: No obvious deformities. Rest of exam deferred BACK/SPINE: Exam deffered - Intubation Time Out Performed: Yes Sedative: Etomidate Mg Given: 20 Paralytic: Rocuronium Mg Given: 100 Laryngoscope: Cherri Size: 4 ET Tube Size: 7.5 Tube Secured Depth (cm): 20 Tube Secured Location: lips Tube Placement Confirmation: visualized tube passing t, equal breath sounds bilat, confirmation by capnometr Patient Tolerated Procedure: well Intubation Complications: none ED Medical Decision Making - Lab Data Result diagrams: 09/10/20 14:26 09/10/20 14:26 - Radiology Data CT head/brain wo con INDICATION / CLINICAL INFORMATION: 54 years Female; head trauma and vomiting PT UNRESPONSIVE. TECHNIQUE: Routine CT head without contrast. All CT scans at this location are performed using CT dose reduction for ALARA by means of automated exposure control. COMPARISON: None. FINDINGS: BRAIN / INTRACRANIAL CONTENTS: The brain parenchyma appears to demonstrate appropriate attenuation for age. The ventricular system is within normal limits in size and configuration. There is no clear CT evidence of acute intracranial hemorrhage or significant mass effect. ORBITS: No significant abnormality of visualized orbits. SINUSES / MASTOIDS: No significant abnormality in the visualized paranasal sinuses or mastoid air cells. CRANIOCERVICAL JUNCTION: No significant abnormality. ADDITIONAL FINDINGS: None. IMPRESSION: 1. There is no CT evidence of acute intracranial process. Signer Name: Drew Jama MD Signed: 09/10/2020 2:20 PM Workstation Name: [id number] CT cervical spine wo con INDICATION / CLINICAL INFORMATION: 54 years Female; head trauma PT UNRESPONSIVE. TECHNIQUE: Axial CT images of the cervical spine were obtained. Sagittal and coronal reformatted images were produced. All CT scans at this location are performed using CT dose reduction for ALARA by means of automated exposure control. COMPARISON: None available. FINDINGS: Alignment: There is no significant spondylolisthesis involving the cervical spine. VERTEBRAE: The motion as well as the beam hardening from the patient's body habitus degrade the image quality. However, there is no clear CT evidence of acute fracture involving the cervical spine. INTRAVERTEBRAL DISCS: The cervical disc spaces appear fairly well-maintained without clear CT evidence of significant bony spinal stenosis. PARASPINAL SOFT TISSUES: There is no clear CT evidence of prevertebral soft tissue fluid collections. ADDITIONAL FINDINGS: None. IMPRESSION: 1. There is no CT evidence of acute fracture involving the cervical spine. Signer Name: Drew Jama MD Signed: 09/10/2020 2:24 PM Workstation Name: [id number] CT ABDOMEN AND PELVIS WITH CONTRAST INDICATION / CLINICAL INFORMATION: abdominal pain + tenderness [id number] 100ML. TECHNIQUE: Axial CT images were obtained through the abdomen and pelvis after 100 mL Omnipaque [address] scans at this location are performed using CT dose reduction for ALARA by means of automated exposure control. COMPARISON: CT abdomen pelvis 12/28/2018 FINDINGS: LOWER CHEST: No significant abnormality. LIVER: No significant abnormality. BILIARY SYSTEM: Cystic change at the gallbladder fundus most likely reflects adenomyomatosis. The gallbladder is otherwise unremarkable. PANCREAS: No significant abnormality. SPLEEN: No significant abnormality. ADRENALS: No significant abnormality. KIDNEYS and URETERS: There is an unchanged 4.7 cm cyst with thin internal septation in the right lower pole. STOMACH / BOWEL: The colon is fluid-filled with mild circumferential wall thickening predominantly involving the descending and sigmoid colon, suggestive of colitis. The appendix is normal. PERITONEUM: No free fluid. No free air. No fluid collection. LYMPH NODES: No significant adenopathy. VASCULAR STRUCTURES: No significant abnormality. URINARY BLADDER: Collapsed. REPRODUCTIVE ORGANS: No significant abnormality. ADDITIONAL FINDINGS: None. SKELETAL SYSTEM: No significant abnormality. IMPRESSION: 1. The colon is fluid-filled with mild circumferential wall thickening, suggestive of colitis. 2. Unchanged right lower pole renal cyst with thin internal septation. Signer Name: Arlin Bennett MD Signed: 09/10/2020 2:28 PM Workstation Name: [id number] CHEST 1 VIEW INDICATION / CLINICAL INFORMATION: sepsis. COMPARISON: Chest radiograph 10/10/2017 FINDINGS: SUPPORT DEVICES: Endotracheal tube in place with tip terminating approximately 3 cm above the level of the florentin. Enteric tube terminating in the gastric body with side hole distal to the gastr oesophageal junction. HEART / MEDIASTINUM: No significant abnormality. LUNGS / PLEURA: No significant pulmonary or pleural abnormality. No pneumothorax. ADDITIONAL FINDINGS: No significant additional findings. IMPRESSION: 1. Appropriately positioned endotracheal and enteric tubes. No acute abnormality identified. Signer Name: Arlin Bennett MD Signed: 09/10/2020 3:08 PM Workstation Name: [id number] ABDOMEN 1 VIEW INDICATION / CLINICAL INFORMATION: OG tube placemenmt. COMPARISON: CT abdomen pelvis earlier same day FINDINGS: TUBES / LINES: Enteric tube with tip terminating in the distal stomach and sidehole distal to the gastroesophageal junction. BOWEL GAS PATTERN: No significant abnormality. FREE AIR / EXTRALUMINAL GAS: None seen. ADDITIONAL FINDINGS: There is retained contrast in the renal collecting systems. IMPRESSION: 1. Appropriately positioned enteric tube. Signer Name: Arlin Bennett MD Signed: 09/10/2020 3:08 PM Workstation Name: [id number] - Medical Decision Making 54-year-old female brought in by EMS for profuse vomiting/retching all day as well as multiple episodes of defecation after a potential syncopal episode in the bathroom this morning. Patient went to the bathroom this morning because she had abdominal pain and urgency defecate and apparently at one point lost consciousness and fell backwards, hitting her head. She states that since then she has been vomiting. She is in acute distress and actively retching which is severely limiting the interview/exam. On initial assessment, the patient is in acute distress and actively retching. 4 mg of IV Zofran has been ordered. She is noted to have generalized abdominal tenderness although her abdomen is soft and not significantly distended. Given concern for possible intracranial hemorrhage, I emergently ordered a noncontrast CT of the head and neck as well as contrasted CT of the abdomen pelvis to be done without labs given that it is unclear whether her gastrointestinal symptoms are due to an intra-abdominal process or an intracranial process. I have also ordered a full set of labs, EKG, and chest x-ray. We will give 1 L of IV fluids and Zofran. Soon after my initial assessment, I was alerted that the patient has a rectal temperature of 100.4. Accordingly, sepsis order set was initiated with a full set of labs and cultures. Will give 30 mL/kg of IV fluids and IV ceftriaxone/vancomycin/Flagyl. The differential diagnosis is extremely broad at this time. When I went back at this time to further assess the patient, she is extremely somnolent and fell asleep. She was arousable by sternal rub. GCS of 12 (eye opening 2, verbal response 4, motor response 6) She is now not answering my questions and keeps saying that she wants her son MIRANDA. We will continue to monitor her very closely and follow-up diagnostic studies. At 2:43 PM, I was called emergently to the CT scanner. When I arrived, the patient was on her side with the nurse suctioning her secretions. Apparently after CT was obtained the patient had 04/21 long tonic-clonic seizure which resolved spontaneously. After which, the patient became unresponsive/postictal. Given that I am concerned about her ability to protect her airway I decided at this point to proceed emergently with intubation. RSI was performed with 20 mg of etomidate and 100 mg of rocuronium. 1500 mg of IV Keppra ordered as a loading dose. Review of the patient's labs reveals leukocytosis of 21.2 and elevated hemoglobin of 14.8 consistent with dehydration. Her potassium is 3.3 which I have repleted. Creatinine is 1.0 corresponding with normal kidney function. Bicarb is 19. Given suspicion for possible meningitis, I added on ampicillin 2 g to cover potential Listeria. We will continue to follow-up CT studies closely. We will consult teleneurology now for further recommendations given the patient's seizure. Spoke to Dr. Cornejo of teleneurology at 3:45 PM regarding the case. He agrees with current treatment and recommends transfer to a facility that has continuous/video EEG monitoring. We will therefore attempt to transfer to [facility]. At 4:35 PM I spoke over the phone with Dr. Julian regarding the case. He recommends ministering IV acyclovir 10 mg/kg, CTA of the head and neck, and immediate LP if possible. The patient was accepted to [facility] by Dr. Kvng Coppola. CT of the abdomen and pelvis shows fluid-filled loops of bowel consistent with colitis. Patient already treated with multiple antibiotics. The patient's daughter is now at the bedside and I spoke with her regarding patient's critical condition and the fact that her exact diagnosis is unknown at this time although she is septic and there is evidence of colitis as well as suspicion for possible menigitis. I conveyed the fact that she will be transferred to another facility for further care. She expressed understanding and agreement. After much time was spent prepping the patient for LP, when I went to perform the LP the patient had defecated on herself again. There is gastric contents coming out of her OG tube. She has been accepted at [facility] and report has been called and transportation is reportedly arriving soon. I will not delay her transfer and will instead defer LP and CTA head/neck to the accepting facility if cannot be performed in time. When I went back to inquire about whether the patient is ready for LP, transport has arrived. As stated I will not delay her transfer Critical Care Time: Yes (180) Critical care time in (mins) excluding proc time.: 180 Critical care attestation.: If time is entered above; I have spent that time in minutes in the direct care of this critically ill patient, excluding procedure time. Critical care time was spent in the assessment, interpretation, intervention, coordination of care, and management of life-threatening sepsis, neurologic deterioration and seizure, respiratory failure requiring intubation and mechanical ventilation, colitis, and suspected meningitis. ED Disposition Clinical Impression: Colitis, Seizure, Meningitis, Hypokalemia, Elevated lipase Respiratory failure Qualifiers: Chronicity: acute Respiratory failure complication: unspecified whether with hypoxia or hypercapnia Qualified Code(s): J96.00 - Acute respiratory failure, unspecified whether with hypoxia or hypercapnia Altered mental state Qualifiers: Coma depth: Rebeca coma 13-15 Coma timing: unspecified coma timing Sepsis Qualifiers: Sepsis acute organ dysfunction status: unspecified Disposition: DC/TX-70 ANOTHER TYPE [facility] Is pt being admited?: No Condition: Critical Referrals: JOHN LEWIS MD [Primary Care Provider] - 3-5 Days
[2020-09-10] MEDS ORDERED: cefTRIAXone/NS 2 GM/100 ML 2 GM/100 ML BAG IV ONE (14:33)
[2020-09-10] MEDS ORDERED: VANCOMYCIN 1,500 MG in SODIUM CHLORIDE 0.9% 500 ML 500 ML IV ONE (14:33)
[2020-09-10] MEDS ORDERED: metroNIDAZOLE/NS 500 MG/100 ML 500 MG/100 ML BAG IV ONE (14:40)
[2020-09-10 14:48] LABS: Hematocrit 43.8 % (30.3-42.9); Hemoglobin 14.8 gm/dl (10.1-14.3); Mean Corpuscular HGB Conc 34 % (30-34); Mean Corpuscular Volume 89 fl (79-97); Platelet Count 385 K/mm3 (140-440); Red Cell Distribution Width 13.7 % (13.2-15.2)
[2020-09-10] MEDS ORDERED: KETAMINE 500 MG/5 ML VIAL MDV ONE (14:55)
[2020-09-10] MEDS ORDERED: ROCURONIUM 50 MG/5 ML INJ IV ONE (14:56)
[2020-09-10 14:57] LABS: INR 0.9 (0.87-1.13)
[2020-09-10] MEDS ORDERED: ETOMIDATE 20 MG/10 ML INJ IV ONE (14:58)
[2020-09-10] MEDS ORDERED: VANCOMYCIN PHARMACY TO DOSE IV SCH (15:00)
[2020-09-10 15:17] LABS: Alanine Aminotransferase 12 units/L (7-56); Albumin 4.8 g/dL (3.9-5); BUN/Creatinine Ratio 10; Bilirubin,Direct < 0.2 mg/dL (0-0.2); Blood Urea Nitrogen 10 mg/dL (7-17); Calcium 10.3 mg/dL (8.4-10.2); Hemolysis Index 26
--- NOTE | 2020-09-10 15:24 | Cat Scan Report ---
CT head/brain wo con INDICATION / CLINICAL INFORMATION: 54 years Female; head trauma and vomiting PT UNRESPONSIVE. TECHNIQUE: Routine CT head without contrast. All CT scans at this location are performed using CT dos e reduction for ALARA by means of automated exposure control. COMPARISON: None. FINDINGS: BRAIN / INTRACRANIAL CONTENTS: The brain parenchyma appears to demonstrate appropriate attenuation fo r age. The ventricular system is within normal limits in size and configuration. There is no clear CT evidence of acute intracranial hemorrhage or significant mass effect. ORBITS: No significant abnormality of visualized orbits. SINUSES / MASTOIDS: No significant abnormality in the visualized paranasal sinuses or mastoid air tran ls. CRANIOCERVICAL JUNCTION: No significant abnormality. ADDITIONAL FINDINGS: None. IMPRESSION: 1. There is no CT evidence of acute intracranial process. Signer Name: Drew Jama MD Signed: 09/10/2020 3:20 PM Workstation Name: [id number]
--- NOTE | 2020-09-10 15:28 | Cat Scan Report ---
CT cervical spine wo con INDICATION / CLINICAL INFORMATION: 54 years Female; head trauma PT UNRESPONSIVE. TECHNIQUE: Axial CT images of the cervical spine were obtained. Sagittal and coronal reformatted images were pr oduced. All CT scans at this location are performed using CT dose reduction for ALARA by means of aut omated exposure control. COMPARISON: None available. FINDINGS: Alignment: There is no significant spondylolisthesis involving the cervical spine. VERTEBRAE: The motion as well as the beam hardening from the patient's body habitus degrade the imag e quality. However, there is no clear CT evidence of acute fracture involving the cervical spine. INTRAVERTEBRAL DISCS: The cervical disc spaces appear fairly well-maintained without clear CT evidenc e of significant bony spinal stenosis. PARASPINAL SOFT TISSUES: There is no clear CT evidence of prevertebral soft tissue fluid collections. ADDITIONAL FINDINGS: None. IMPRESSION: 1. There is no CT evidence of acute fracture involving the cervical spine. Signer Name: Drew Jama MD Signed: 09/10/2020 3:24 PM Workstation Name: [id number]
[2020-09-10] MEDS ORDERED: SODIUM CHLORIDE 0.9% 500 ML 500 ML IV ONE (15:29)
--- NOTE | 2020-09-10 15:32 | Cat Scan Report ---
CT ABDOMEN AND PELVIS WITH CONTRAST INDICATION / CLINICAL INFORMATION: abdominal pain + tenderness [id number] 100ML. TECHNIQUE: Axial CT images were obtained through the abdomen and pelvis after 100 mL Omnipaque [address] scans at this location are performed using CT dose reduction for ALARA by means of automated exposure control. COMPARISON: CT abdomen pelvis 12/28/2018 FINDINGS: LOWER CHEST: No significant abnormality. LIVER: No significant abnormality. BILIARY SYSTEM: Cystic change at the gallbladder fundus most likely reflects adenomyomatosis. The gal lbladder is otherwise unremarkable. PANCREAS: No significant abnormality. SPLEEN: No significant abnormality. ADRENALS: No significant abnormality. KIDNEYS and URETERS: There is an unchanged 4.7 cm cyst with thin internal septation in the right lowe r pole. STOMACH / BOWEL: The colon is fluid-filled with mild circumferential wall thickening predominantly in volving the descending and sigmoid colon, suggestive of colitis. The appendix is normal. PERITONEUM: No free fluid. No free air. No fluid collection. LYMPH NODES: No significant adenopathy. VASCULAR STRUCTURES: No significant abnormality. URINARY BLADDER: Collapsed. REPRODUCTIVE ORGANS: No significant abnormality. ADDITIONAL FINDINGS: None. SKELETAL SYSTEM: No significant abnormality. IMPRESSION: 1. The colon is fluid-filled with mild circumferential wall thickening, suggestive of colitis. 2. Unchanged right lower pole renal cyst with thin internal septation. Signer Name: Arlin Bennett MD Signed: 09/10/2020 3:28 PM Workstation Name: [id number]
[2020-09-10 15:40] LABS: Total Cells Counted 100
[2020-09-10 15:52] LABS: Platelet Estimate Consistent w Auto; RBC Morphology Normal
[2020-09-10] MEDS ORDERED: AMPICILLIN/NS 2 GM/100 ML 2 GM/100 ML BAG IV ONE (16:00)
[2020-09-10] MEDS ORDERED: POTASSIUM CHLORIDE 10 MEQ 10 MEQ/100 ML BAG IV SCH (16:00)
[2020-09-10] MEDS ORDERED: levETIRAcetam 1,500 MG in DEXTROSE 5% IN WATER 100 ML IV SCH (16:00)
--- NOTE | 2020-09-10 16:04 | Consultation ---
History of Present Illness History of present illness: [facility] Consult Note # Demographics Consult Type: General Neurology Patient Location: Emergency Room First Name: Shayy Last Name: Rose Marie Aaron Date of : 1965 Age: 54 Gender: Female Time of Initial Page (Eastern Time): 09/10/2020, 15:46 Time of Return Call (Eastern Time): 09/10/2020, 15:46 Phone Only Consult: 54F with chronic back pain on opioids presents with AMS/LOC. Has been out of oxycodone for several days. Came to the ED, vomiting, having diarrhea, very agitated. Febrile to 100.5. WBC 22K. CT head unremarkable. Had a [address] Given 1.5g levetiracetam and then intubated for airway protection, placed on propofol and fentanyl for sedation. Started on [employer]-dosed antibiotics. Recommend video EEG and LP, which may need to be done under IR guidance. # [employer] Telemedicine: phone only Electronically signed at 09/10/2020 15:54 ( Time) by Clemente Zhong MD Medications and Allergies Allergies Allergy/AdvReac Type Severity Reaction Status Date / Time acetaminophen [From Tylenol] Allergy Unknown Verified 12/28/18 11:01 aspirin Allergy Hives Verified 04/18/18 11:48 Home Medications Medication Instructions Recorded Confirmed Last Taken Type Albuterol Mdi (or & Nicu Only) 2 puff IH QID PRN #1 inhalation 07/28/14 Unknown Rx [ProAir HFA Inhaler] Azithromycin [Zithromax Z-ALEXUS] 250 mg PO DAILY #6 tablet 07/28/14 Unknown Rx Ibuprofen [Motrin] 800 mg PO Q8H PRN #30 tablet 07/28/14 Unknown Rx Prednisone [Prednisone 10 mg 10 mg PO .TAPER #1 tab.ds.pk 07/28/14 Unknown Rx (6-Day Pack, 21 Tabs)] Cyclobenzaprine [Flexeril 10 MG 10 mg PO TID PRN #15 tablet 10/20/14 Unknown Rx TAB] Ibuprofen [Motrin 800 MG tab] 800 mg PO Q8HR PRN #30 tablet 10/20/14 Unknown Rx Nitrofurantoin [place]/M-Cryst 100 mg PO Q12HR #14 capsule 12/26/15 Unknown Rx [Macrobid CAP] traMADoL [Ultram] 50 mg PO Q6HR PRN #30 tablet 12/26/15 Unknown Rx Albuterol Mdi (or & Nicu Only) 2 puff IH QID PRN #1 inhalation 04/18/18 Unknown Rx [ProAir HFA Inhaler] Azithromycin [Zithromax Z-ALEXUS] 250 mg PO DAILY #6 tablet 04/18/18 Unknown Rx Fluticasone [Flonase] 1 spray NS QDAY #1 bottle 04/18/18 Unknown Rx HYDROcodone/APAP 5-325 [[place] 1 each PO Q4HR PRN #12 tablet 04/18/18 Unknown Rx 5/325] predniSONE [Deltasone] 20 mg PO QDAY #5 tab 04/18/18 Unknown Rx Acetaminophen/Codeine [Tylenol 1 tab PO Q6H PRN #15 tab 08/11/18 Unknown Rx /Codeine # 3 tab] HYDROcodone/APAP 7.5-325 [[place] 1 each PO Q6HR PRN #15 tablet 12/28/18 Unknown Rx 7.5/325] Ondansetron [Zofran Odt] 4 mg PO Q4HR PRN #20 tab.rapdis 12/28/18 Unknown Rx Promethazine [Phenergan TAB] 25 mg PO Q6HR PRN #20 tab 12/28/18 Unknown Rx Active Meds: Active Medications Fentanyl (Fentanyl 100 Mcg/2 Ml Inj) 50 mcg IV Q10MIN PRN PRN Reason: ANALGESIA Vancomycin HCl 1,500 mg/ (Sodium Chloride) 530 mls @ 333 mls/hr IV ONCE ONE; Protocol Stop: 09/10/20 16:03 Levetiracetam 1,500 mg/ (Dextrose) 115 mls @ 400 mls/hr IV Q12H AME Last Admin: 09/10/20 16:01 Dose: 400 mls/hr Documented by: Propofol (Diprivan 10 Mg/Ml) 1,000 mg in 100 mls @ 0 mls/hr IV TITR AME; Protocol Fentanyl Citrate (Fentanyl Drip Premix) 2,000 mcg in 100 mls @ 0 mls/hr IV TITR AME; Protocol Potassium Chloride (Kcl 10meq/100ml) 10 meq in 100 mls @ 100 mls/hr IV Q1H AME Stop: 09/10/20 19:59 Sodium Chloride (Nacl 0.9% 1000 Ml) 1,000 mls @ 999 mls/hr IV BOLUS ONE Stop: 09/10/20 16:29 Ampicillin Sodium (Ampicillin/Ns 2 Gm/100 Ml) 2 gm in 100 mls @ 200 mls/hr IV ONCE ONE Stop: 09/10/20 16:29 Results - Laboratory Findings CBC and BMP: 09/10/20 14:26 09/10/20 14:26 Abnormal Lab Findings: Abnormal Labs 09/10/20 09/10/20 09/10/20 14:26 14:26 14:26 WBC 21.2 H Hgb 14.8 H Hct 43.8 H Seg Neutrophils # Man 14.6 H Monocytes # (Manual) 1.3 H Basophils # (Manual) 0.2 H POC ABG pO2 ABG Potassium ABG Glucose Carboxyhemoglobin Potassium 3.3 L Chloride 97.5 L Carbon Dioxide 19 L Glucose 218 H Calcium 10.3 H Alkaline Phosphatase 134 H Lipase 130 H Arterial Blood Glucose Salicylates < 0.3 L Acetaminophen 09/10/20 09/10/20 14:26 15:27 WBC Hgb Hct Seg Neutrophils # Man Monocytes # (Manual) Basophils # (Manual) POC ABG pO2 145.3 H ABG Potassium 2.8 L ABG Glucose 195 H Carboxyhemoglobin 1.6 H Potassium Chloride Carbon Dioxide Glucose Calcium Alkaline Phosphatase Lipase Arterial Blood Glucose 195 H Salicylates Acetaminophen 5.0 L
--- NOTE | 2020-09-10 16:12 | XRay Report ---
CHEST 1 VIEW INDICATION / CLINICAL INFORMATION: sepsis. COMPARISON: Chest radiograph 10/10/2017 FINDINGS: SUPPORT DEVICES: Endotracheal tube in place with tip terminating approximately 3 cm above the level o f the florentin. Enteric tube terminating in the gastric body with side hole distal to the gastroesophag eal junction. HEART / MEDIASTINUM: No significant abnormality. LUNGS / PLEURA: No significant pulmonary or pleural abnormality. No pneumothorax. ADDITIONAL FINDINGS: No significant additional findings. IMPRESSION: 1. Appropriately positioned endotracheal and enteric tubes. No acute abnormality identified. Signer Name: Arlin Bennett MD Signed: 09/10/2020 4:08 PM Workstation Name: [id number]
--- NOTE | 2020-09-10 16:13 | XRay Report ---
ABDOMEN 1 VIEW INDICATION / CLINICAL INFORMATION: OG tube placemenmt. COMPARISON: CT abdomen pelvis earlier same day FINDINGS: TUBES / LINES: Enteric tube with tip terminating in the distal stomach and sidehole distal to the gas troesophageal junction. BOWEL GAS PATTERN: No significant abnormality. FREE AIR / EXTRALUMINAL GAS: None seen. ADDITIONAL FINDINGS: There is retained contrast in the renal collecting systems. IMPRESSION: 1. Appropriately positioned enteric tube. Signer Name: Arlin Bennett MD Signed: 09/10/2020 4:08 PM Workstation Name: [id number]
[2020-09-10] MEDS: fentaNYL 100 MCG/2 ML INJ IV PRN ×2 (16:31→16:47)
[2020-09-10] MEDS ORDERED: fentaNYL DRIP Premix 2,000 MCG/100 ML BAG IV SCH (17:00)
[2020-09-10] MEDS ORDERED: AMPICILLIN 2,000 MG in SODIUM CHLORIDE 0.9% 50 ML IV ONE (17:00)
[2020-09-10] MEDS ORDERED: ACYCLOVIR IV ONE (17:33)
[2020-09-10] MEDS ORDERED: SODIUM CHLORIDE 0.9% IV ONE (17:33)
[2020-09-10] MEDS ORDERED: VANCOMYCIN 1,750 MG in SODIUM CHLORIDE 0.9% 500 ML 500 ML IV SCH (18:00)
[2020-09-10 18:54] VITALS: BP 174/90
== END 2020-09-10 21:36 | disposition other institution (70) ==
LOC: ED 13:36
DX: J96.90 Respiratory failure, unspecified, unspecified whether with hypoxia or hypercapnia (principal); R41.82 Altered mental status, unspecified; A41.9 Sepsis, unspecified organism; R74.8 Abnormal levels of other serum enzymes; E87.6 Hypokalemia; G03.9 Meningitis, unspecified; K52.9 Noninfective gastroenteritis and colitis, unspecified; G40.909 Epilepsy, unspecified, not intractable, without status epilepticus; J45.909 Unspecified asthma, uncomplicated; F17.200 Nicotine dependence, unspecified, uncomplicated; Z79.899 Other long term (current) drug therapy; Z88.8 Allergy status to other drugs, medicaments and biological substances; Z98.890 Other specified postprocedural states
CPT/HCPCS: 31500; 36415; 70450; 71045; 72125; 74018; 74177; 80048; 80076; 82140; 82805; 82962; 83690; 83735; 84484; 85007; 85025; 85610; 85730; 87040; 87070; 87205; 96361; 96365; 96367; 96368; 96375; 99291; 99292; J0133; J0290; J0696; J1953; J2704; J3010; J3370; J3480; J7030; J7040; Q9967; 80320; 94002; G0480

== ENCOUNTER 2020-09-21 08:55 | Emergency (ER) | payer MEDICARE ==
--- NOTE | 2020-09-21 10:03 | Emergency Department Report ---
ED Chest Pain HPI - General Chief Complaint: Chest Pain Stated Complaint: RT SIDE HURTS Time Seen by Provider: 09/21/20 09:47 Source: patient Mode of arrival: Ambulatory Limitations: No Limitations - History of Present Illness Initial Comments: Patient is 55 years old female with history of hypertension, asthma, chronic back pain and a recent diagnosis of seizure. Patient record reviewed from last visit to the ER. Patient was transferred to [facility] ICU for evaluation of possible meningitis. Patient stated that she was released 2 days ago. Patient presented to the ER today complaining of right-sided chest pain started yesterday. Patient described her pain as sharp with no radiation. Patient denied any shortness of breath, fever or chills. She also denied any nausea or vomiting. No abdominal pain. MD Complaint: chest pain -: days(s) Onset: during rest Pain Location: right chest Severity: moderate Quality: sharp Consistency: intermittent - Related Data Previous Rx's Medication Instructions Recorded Last Taken Type Albuterol Mdi (or & Nicu Only) 2 puff IH QID PRN #1 inhalation 07/28/14 Unknown Rx [ProAir HFA Inhaler] Azithromycin [Zithromax Z-ALEXUS] 250 mg PO DAILY #6 tablet 07/28/14 Unknown Rx Ibuprofen [Motrin] 800 mg PO Q8H PRN #30 tablet 07/28/14 Unknown Rx Prednisone [Prednisone 10 mg 10 mg PO .TAPER #1 tab.ds.pk 07/28/14 Unknown Rx (6-Day Pack, 21 Tabs)] Cyclobenzaprine [Flexeril 10 MG 10 mg PO TID PRN #15 tablet 10/20/14 Unknown Rx TAB] Ibuprofen [Motrin 800 MG tab] 800 mg PO Q8HR PRN #30 tablet 10/20/14 Unknown Rx Nitrofurantoin [place]/M-Cryst 100 mg PO Q12HR #14 capsule 12/26/15 Unknown Rx [Macrobid CAP] traMADoL [Ultram] 50 mg PO Q6HR PRN #30 tablet 12/26/15 Unknown Rx Albuterol Mdi (or & Nicu Only) 2 puff IH QID PRN #1 inhalation 04/18/18 Unknown Rx [ProAir HFA Inhaler] Azithromycin [Zithromax Z-ALEXUS] 250 mg PO DAILY #6 tablet 04/18/18 Unknown Rx Fluticasone [Flonase] 1 spray NS QDAY #1 bottle 04/18/18 Unknown Rx HYDROcodone/APAP 5-325 [[place] 1 each PO Q4HR PRN #12 tablet 04/18/18 Unknown Rx 5/325] predniSONE [Deltasone] 20 mg PO QDAY #5 tab 04/18/18 Unknown Rx Acetaminophen/Codeine [Tylenol 1 tab PO Q6H PRN #15 tab 08/11/18 Unknown Rx /Codeine # 3 tab] HYDROcodone/APAP 7.5-325 [[place] 1 each PO Q6HR PRN #15 tablet 12/28/18 Unknown Rx 7.5/325] Ondansetron [Zofran Odt] 4 mg PO Q4HR PRN #20 tab.rapdis 12/28/18 Unknown Rx Promethazine [Phenergan TAB] 25 mg PO Q6HR PRN #20 tab 12/28/18 Unknown Rx Ondansetron [Zofran Odt] 4 mg PO Q8HR PRN #14 tab.rapdis 09/21/20 Unknown Rx amLODIPine [Norvasc] 5 mg PO DAILY #30 tab 09/21/20 Unknown Rx traMADoL [Ultram] 50 mg PO Q6HR PRN #14 tablet 09/21/20 Unknown Rx Allergies Allergy/AdvReac Type Severity Reaction Status Date / Time acetaminophen [From Tylenol] Allergy Unknown Verified 09/14/20 14:48 aspirin Allergy Hives Verified 09/14/20 14:48 Heart Score - HEART Score History: Slightly suspicious EKG: Normal Age: 45-65 Risk factors: 1-2 risk factors Troponin: < normal limit HEART Score: 2 - EKG Read Time Time EKG Completed: 09:23 EKG Read Time: 09:24 ED Review of Systems ROS: Stated complaint: RT SIDE HURTS Other details as noted in HPI Comment: All other systems reviewed and negative Constitutional: denies: chills, fever Cardiovascular: chest pain. denies: palpitations Gastrointestinal: denies: abdominal pain, nausea, vomiting Musculoskeletal: back pain (chronic) Neurological: denies: headache ED Past Medical Hx - Past Medical History Previous Medical History?: Yes Hx Hypertension: Yes Hx Asthma: Yes Additional medical history: CHRONIC BACK PAIN - Surgical History Past Surgical History?: Yes Additional Surgical History: X 3. RIGHT ARM SURGERY - Social History Smoking Status: Current Every Day Smoker Substance Use Type: None - Medications Home Medications: Home Medications Medication Instructions Recorded Confirmed Last Taken Type Albuterol Mdi (or & Nicu Only) 2 puff IH QID PRN #1 inhalation 07/28/14 Unknown Rx [ProAir HFA Inhaler] Azithromycin [Zithromax Z-ALEXUS] 250 mg PO DAILY #6 tablet 07/28/14 Unknown Rx Ibuprofen [Motrin] 800 mg PO Q8H PRN #30 tablet 07/28/14 Unknown Rx Prednisone [Prednisone 10 mg 10 mg PO .TAPER #1 tab.ds.pk 07/28/14 Unknown Rx (6-Day Pack, 21 Tabs)] Cyclobenzaprine [Flexeril 10 MG 10 mg PO TID PRN #15 tablet 10/20/14 Unknown Rx TAB] Ibuprofen [Motrin 800 MG tab] 800 mg PO Q8HR PRN #30 tablet 10/20/14 Unknown Rx Nitrofurantoin [place]/M-Cryst 100 mg PO Q12HR #14 capsule 12/26/15 Unknown Rx [Macrobid CAP] traMADoL [Ultram] 50 mg PO Q6HR PRN #30 tablet 12/26/15 Unknown Rx Albuterol Mdi (or & Nicu Only) 2 puff IH QID PRN #1 inhalation 04/18/18 Unknown Rx [ProAir HFA Inhaler] Azithromycin [Zithromax Z-ALEXUS] 250 mg PO DAILY #6 tablet 04/18/18 Unknown Rx Fluticasone [Flonase] 1 spray NS QDAY #1 bottle 04/18/18 Unknown Rx HYDROcodone/APAP 5-325 [[place] 1 each PO Q4HR PRN #12 tablet 04/18/18 Unknown Rx 5/325] predniSONE [Deltasone] 20 mg PO QDAY #5 tab 04/18/18 Unknown Rx Acetaminophen/Codeine [Tylenol 1 tab PO Q6H PRN #15 tab 08/11/18 Unknown Rx /Codeine # 3 tab] HYDROcodone/APAP 7.5-325 [[place] 1 each PO Q6HR PRN #15 tablet 12/28/18 Unknown Rx 7.5/325] Ondansetron [Zofran Odt] 4 mg PO Q4HR PRN #20 tab.rapdis 12/28/18 Unknown Rx Promethazine [Phenergan TAB] 25 mg PO Q6HR PRN #20 tab 12/28/18 Unknown Rx Ondansetron [Zofran Odt] 4 mg PO Q8HR PRN #14 tab.rapdis 09/21/20 Unknown Rx amLODIPine [Norvasc] 5 mg PO DAILY #30 tab 09/21/20 Unknown Rx traMADoL [Ultram] 50 mg PO Q6HR PRN #14 tablet 09/21/20 Unknown Rx ED Physical Exam - General Limitations: No Limitations General appearance: alert, in no apparent distress - Head Head exam: Present: atraumatic, normocephalic, normal inspection - Eye Eye exam: Present: normal appearance - ENT ENT exam: Present: normal exam, normal orophraynx, mucous membranes moist - Neck Neck exam: Present: normal inspection, full ROM. Absent: tenderness, meningismus - Respiratory Respiratory exam: Present: normal lung sounds bilaterally - Cardiovascular Cardiovascular Exam: Present: regular rate, normal rhythm, normal heart sounds - GI/Abdominal GI/Abdominal exam: Present: soft, normal bowel sounds. Absent: distended, tenderness, guarding, rebound, rigid, organomegaly, mass, bruit, pulsatile mass, hernia - Extremities Exam Extremities exam: Present: normal inspection, full ROM, normal capillary refill. Absent: tenderness, pedal edema, joint swelling, calf tenderness - Back Exam Back exam: Absent: CVA tenderness (R), CVA tenderness (L) - Neurological Exam Neurological exam: Present: alert, oriented X3, CN II-XII intact - Psychiatric Psychiatric exam: Present: normal mood - Skin Skin exam: Present: warm, intact, normal color ED Course Vital Signs 09/21/20 09/21/20 09/21/20 09:23 09:40 09:46 Temperature 98.2 F Pulse Rate 103 H 104 H Respiratory 20 11 L 12 Rate Blood Pressure 175/146 148/86 Blood Pressure [Left] O2 Sat by Pulse 99 99 98 Oximetry 09/21/20 09/21/20 09/21/20 10:16 10:46 12:02 Temperature Pulse Rate 87 91 H 99 H Respiratory 20 19 16 Rate Blood Pressure 134/89 129/81 135/84 Blood Pressure [Left] O2 Sat by Pulse 97 98 100 Oximetry 09/21/20 09/21/20 09/21/20 12:46 13:30 14:42 Temperature Pulse Rate 97 H 104 H 104 H Respiratory 12 23 16 Rate Blood Pressure 135/79 135/79 Blood Pressure 137/80 [Left] O2 Sat by Pulse 98 99 100 Oximetry ED Medical Decision Making - Lab Data Result diagrams: 09/21/20 09:54 09/21/20 09:54 - Radiology Data Radiology results: report reviewed - Medical Decision Making Patient is 55 years old female with history of hypertension, asthma, chronic back pain and a recent diagnosis of seizure. Patient record reviewed from last visit to the ER. Patient was transferred to [facility] ICU for evaluation of possible meningitis. Patient stated that she was released 2 days ago. Patient presented to the ER today complaining of right-sided chest pain started yesterday. Patient described her pain as sharp with no radiation. Patient denied any shortness of breath, fever or chills. She also denied any nausea or vomiting. No abdominal pain. Patient remained stable in the ER. Labs reviewed and is unremarkable except for slightly elevated lipase consistent with her previous pancreatitis. CTA chest showed no evidence of pulmonary embolism. Patient advised to follow-up with her primary care physician in the next 2 to 3 days and to return to the ER she develop any new symptoms. Critical care attestation.: If time is entered above; I have spent that time in minutes in the direct care of this critically ill patient, excluding procedure time. ED Disposition Clinical Impression: Acute chest pain, Pancreatitis, Malignant hypertension Disposition: - TO HOME OR SELFCARE Is pt being admited?: No Condition: Stable Instructions: Acute Pancreatitis, [id number], Hypertension, Adult, [id number], Chest Pain (ED), Hypertension (ED) Prescriptions: amLODIPine [Norvasc] 5 mg PO DAILY #30 tab traMADoL [Ultram] 50 mg PO Q6HR PRN #14 tablet PRN Reason: Pain Ondansetron [Zofran Odt] 4 mg PO Q8HR PRN #14 tab.rapdis PRN Reason: Nausea And Vomiting Referrals: PRIMARY CARE, [Primary Care Provider] - 3-5 Days
[2020-09-21 10:09] LABS: Hematocrit 34.8 % (30.3-42.9); Hemoglobin 12.3 gm/dl (10.1-14.3); Mean Corpuscular HGB Conc 35 % (30-34); Mean Corpuscular Volume 88 fl (79-97); Platelet Count 366 K/mm3 (140-440); Red Blood Count 3.96 M/mm3 (3.65-5.03); Red Cell Distribution Width 13.9 % (13.2-15.2)
[2020-09-21 10:19] LABS: INR 0.93 (0.87-1.13)
[2020-09-21 10:20] LABS: Partial Thromboplastin Time 24.6 Sec. (24.2-36.6)
[2020-09-21 10:28] LABS: Blood Urea Nitrogen 11 mg/dL (7-17); Calcium 8.9 mg/dL (8.4-10.2); Hemolysis Index 2
[2020-09-21 10:31] LABS: BUN/Creatinine Ratio 18
--- NOTE | 2020-09-21 10:50 | XRay Report ---
CHEST 1 VIEW 09/21/2020 9:42 AM INDICATION / CLINICAL INFORMATION: Chest Pain. COMPARISON: 09/10/2020 FINDINGS: SUPPORT DEVICES: None. HEART / MEDIASTINUM: No significant abnormality. LUNGS / PLEURA: No significant pulmonary or pleural abnormality. No pneumothorax. ADDITIONAL FINDINGS: No significant additional findings. IMPRESSION: 1. No acute findings. Signer Name: Param Rollins MD Signed: 09/21/2020 10:46 AM Workstation Name: [id number]
[2020-09-21 11:13] LABS: Band Neutrophils # (Manual) 0.1 K/mm3; Platelet Estimate Consistent w Auto; RBC Morphology Normal; Total Cells Counted 100
--- NOTE | 2020-09-21 13:06 | Cat Scan Report ---
CTA CHEST WITH IV CONTRAST INDICATION: Chest pain. TECHNIQUE: Axial CT images were obtained through the chest after injection of 100 cc Omnipaque 350 IV contrast. 3 plane MIP reconstructions were produced. All CT scans at this location are performed using CT dose reduction for ALARA by means of automated exposure control. COMPARISON: One view of the chest performed today FINDINGS: Motion artifact limits the study. PULMONARY ARTERIES: There is good opacification of the pulmonary arteries to the segmental level with out CT evidence of pulmonary emboli. AORTA AND ARTERIES: No acute abnormality. The aorta is mildly calcified. No other significant atheros clerosis. HEART: No significant abnormality. MEDIASTINUM: No mass or lymphadenopathy. No significant abnormality of the trachea or main bronchi. LUNGS: No suspicious consolidation, nodule or mass. No pneumothorax or pleural effusion. ADDITIONAL FINDINGS: None. UPPER ABDOMEN: No acute findings. BONES: No significant osseous abnormality. IMPRESSION: 1. No CT evidence for pulmonary embolism. 2. No acute findings. Signer Name: Cy Mata MD Signed: 09/21/2020 1:02 PM Workstation Name: [id number]
[2020-09-21 14:42] VITALS: BP 137/80
== END 2020-09-21 14:51 | disposition home or self-care (01) ==
LOC: ED 08:55
DX: K85.90 Acute pancreatitis without necrosis or infection, unspecified (principal); R07.89 Other chest pain; I10 Essential (primary) hypertension; J45.909 Unspecified asthma, uncomplicated; F17.200 Nicotine dependence, unspecified, uncomplicated; Z79.899 Other long term (current) drug therapy; Z88.8 Allergy status to other drugs, medicaments and biological substances; Z98.890 Other specified postprocedural states
CPT/HCPCS: 36415; 71045; 71275; 80048; 83690; 84484; 85007; 85025; 85610; 85730; 99284; Q9967

== ENCOUNTER 2020-10-09 12:03 | Emergency (ER) | payer MEDICARE ==
--- NOTE | 2020-10-09 12:53 | Event Note ---
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 Further treatment and workup at subsequent clinical providers discretion. Patient/guardian urged not to elope from the ED as their condition may be serious if not clinically assessed and managed. Initial orders include: Labs
[2020-10-09 14:16] LABS: Basophils # (Auto) 0.1 K/mm3 (0.0-0.1); Eosinophils # (Auto) 0.1 K/mm3 (0.0-0.4); Eosinophils % (Auto) 1.4 % (0.0-4.3); Hematocrit 40.4 % (30.3-42.9); Hemoglobin 13.5 gm/dl (10.1-14.3); Lymphocytes # (Auto) 2.7 K/mm3 (1.2-5.4); Lymphocytes % (Auto) 41.3 % (13.4-35.0); Mean Corpuscular HGB Conc 33 % (30-34); Mean Corpuscular Volume 90 fl (79-97); Monocytes # (Auto) 0.5 K/mm3 (0.0-0.8); Monocytes % (Auto) 7.5 % (0.0-7.3); Platelet Count 261 K/mm3 (140-440); Red Blood Count 4.47 M/mm3 (3.65-5.03)
[2020-10-09 14:27] LABS: Alanine Aminotransferase 9 units/L (7-56); Albumin 4.1 g/dL (3.9-5); Blood Urea Nitrogen 8 mg/dL (7-17); Calcium 9.5 mg/dL (8.4-10.2); Hemolysis Index 7
[2020-10-09 14:30] LABS: BUN/Creatinine Ratio 11
[2020-10-09] MEDS ORDERED: ONDANSETRON 4 MG/2 ML INJ IV ONE (23:04)
[2020-10-09] MEDS ORDERED: MORPHINE 4 MG/1 ML INJ IV ONE (23:04)
[2020-10-09] MEDS ORDERED: KETOROLAC 30 MG/1 ML INJ IV ONE (23:04)
--- NOTE | 2020-10-10 00:25 | Cat Scan Report ---
CT abdomen pelvis w con INDICATION / CLINICAL INFORMATION: Severe abd pain with a Hx of Pancreatitis. TECHNIQUE: Axial CT images were obtained through the abdomen and pelvis after IV contrast. All CT sc ans at this location are performed using CT dose reduction for ALARA by means of automated exposure c ontrol. COMPARISON: CT from 09/10/2020. FINDINGS: LOWER CHEST: No significant abnormality LIVER: No significant abnormality GALLBLADDER/BILIARY TREE: Stable cystic changes at the gallbladder fundus. Focal areas of gallbladder wall thickening appear increased from prior study. No significant inflammation. Gallbladder is not d istended. No biliary dilatation. PANCREAS: No significant abnormality SPLEEN: No significant abnormality ADRENALS: No significant abnormality KIDNEYS / URETER: Unchanged right renal cyst with internal septations. Kidneys enhance symmetrically. No hydronephrosis. URINARY BLADDER: No significant abnormality REPRODUCTIVE ORGANS: No significant abnormality STOMACH / BOWEL: No significant abnormality. The appendix is normal in caliber. LYMPH NODES: No significant adenopathy. VASCULATURE: No significant abnormality. OTHER: No free air, free fluid, or focal fluid collection is identified. SKELETAL SYSTEM: No acute osseous findings. IMPRESSION: 1. Increased focal areas of gallbladder wall thickening with similar cystic changes at the gallbladde r fundus. This may reflect adenomyomatosis. The gallbladder is not distended and there is no signific ant inflammation. Consider further evaluation with right upper quadrant ultrasound, as clinically ind icated. 2. Otherwise, no acute abnormality of the abdomen or pelvis. 3. Other stable chronic and incidental findings, as above. Signer Name: Travon Woodward MD Signed: 10/10/2020 12:21 AM Workstation Name: [id number]
--- NOTE | 2020-10-10 00:42 | Emergency Department Report ---
ED Abdominal Pain HPI - General Chief Complaint: Abdominal Pain Stated Complaint: PANCREATITIS PAIN Time Seen by Provider: 10/09/20 12:50 Source: patient Mode of arrival: Ambulatory Limitations: No Limitations - History of Present Illness Initial Comments: Patient is a 55-year-old F [place] female who is a poor historian who is presenting with abdominal discomfort. Patient is here on 613 as well as 09/22/2019. Versus visit the patient was here for nausea vomiting abdominal discomfort. She ended up having several seizures here in the emergency dep artment. Patient was transferred to [place] due to possible meningitis. Patient was seen at [place] for several days and then left AMA. She was told at some point that she may have a hole in her pancreas and that they wanted to do surgery in October. Patient states she was afraid and left AGAINST MEDICAL ADVICE. According to the patient today the surgery is still scheduled. Patient came back here on 21 September for some abdominal pain. She had minimal elevation of her pancreatic enzymes at that time at 74. Patient is here today stating that she has generalized abdominal pain. She states she has some mild nausea but no vomiting. Denies diarrhea. Is been no fevers chills cough cold or congestion. Again patient is poor historian and a lot of her care that occurred at [place] is unknown to us at this time. Severity scale (0 -10): 10 - Related Data Previous Rx's Medication Instructions Recorded Last Taken Type Albuterol Mdi (or & Nicu Only) 2 puff IH QID PRN #1 inhalation 07/28/14 Unknown Rx [ProAir HFA Inhaler] Azithromycin [Zithromax Z-ALEXUS] 250 mg PO DAILY #6 tablet 07/28/14 Unknown Rx Ibuprofen [Motrin] 800 mg PO Q8H PRN #30 tablet 07/28/14 Unknown Rx Prednisone [Prednisone 10 mg 10 mg PO .TAPER #1 tab.ds.pk 07/28/14 Unknown Rx (6-Day Pack, 21 Tabs)] Cyclobenzaprine [Flexeril 10 MG 10 mg PO TID PRN #15 tablet 10/20/14 Unknown Rx TAB] Ibuprofen [Motrin 800 MG tab] 800 mg PO Q8HR PRN #30 tablet 10/20/14 Unknown Rx Nitrofurantoin Madison/M-Cryst 100 mg PO Q12HR #14 capsule 12/26/15 Unknown Rx [Macrobid CAP] traMADoL [Ultram] 50 mg PO Q6HR PRN #30 tablet 12/26/15 Unknown Rx Albuterol Mdi (or & Nicu Only) 2 puff IH QID PRN #1 inhalation 04/18/18 Unknown Rx [ProAir HFA Inhaler] Azithromycin [Zithromax Z-ALEXUS] 250 mg PO DAILY #6 tablet 04/18/18 Unknown Rx Fluticasone [Flonase] 1 spray NS QDAY #1 bottle 04/18/18 Unknown Rx HYDROcodone/APAP 5-325 [Lisle 1 each PO Q4HR PRN #12 tablet 04/18/18 Unknown Rx 5/325] predniSONE [Deltasone] 20 mg PO QDAY #5 tab 04/18/18 Unknown Rx Acetaminophen/Codeine [Tylenol 1 tab PO Q6H PRN #15 tab 08/11/18 Unknown Rx /Codeine # 3 tab] HYDROcodone/APAP 7.5-325 [Lisle 1 each PO Q6HR PRN #15 tablet 12/28/18 Unknown Rx 7.5/325] Ondansetron [Zofran Odt] 4 mg PO Q4HR PRN #20 tab.rapdis 12/28/18 Unknown Rx Promethazine [Phenergan TAB] 25 mg PO Q6HR PRN #20 tab 12/28/18 Unknown Rx Ondansetron [Zofran Odt] 4 mg PO Q8HR PRN #14 tab.rapdis 09/21/20 Unknown Rx amLODIPine [Norvasc] 5 mg PO DAILY #30 tab 09/21/20 Unknown Rx traMADoL [Ultram] 50 mg PO Q6HR PRN #14 tablet 09/21/20 Unknown Rx Dicyclomine [Bentyl] 20 mg PO QID #10 tablet 10/10/20 Unknown Rx Ketorolac [Toradol] 10 mg PO Q6H PRN #12 tablet 10/10/20 Unknown Rx Ondansetron [Zofran Odt] 4 mg PO Q8HR #10 tab.rapdis 10/10/20 Unknown Rx Allergies Allergy/AdvReac Type Severity Reaction Status Date / Time acetaminophen [From Tylenol] Allergy Unknown Verified 09/14/20 14:48 aspirin Allergy Hives Verified 09/14/20 14:48 ED Review of Systems ROS: Stated complaint: PANCREATITIS PAIN Other details as noted in HPI Comment: All other systems reviewed and negative ED Past Medical Hx - Past Medical History Hx Hypertension: Yes Hx Asthma: Yes Additional medical history: CHRONIC BACK PAIN - Surgical History Additional Surgical History: X 3. RIGHT ARM SURGERY - Social History Smoking Status: Never Smoker Substance Use Type: None - Medications Home Medications: Home Medications Medication Instructions Recorded Confirmed Last Taken Type Albuterol Mdi (or & Nicu Only) 2 puff IH QID PRN #1 inhalation 07/28/14 Unknown Rx [ProAir HFA Inhaler] Azithromycin [Zithromax Z-ALEXUS] 250 mg PO DAILY #6 tablet 07/28/14 Unknown Rx Ibuprofen [Motrin] 800 mg PO Q8H PRN #30 tablet 07/28/14 Unknown Rx Prednisone [Prednisone 10 mg 10 mg PO .TAPER #1 tab.ds.pk 07/28/14 Unknown Rx (6-Day Pack, 21 Tabs)] Cyclobenzaprine [Flexeril 10 MG 10 mg PO TID PRN #15 tablet 10/20/14 Unknown Rx TAB] Ibuprofen [Motrin 800 MG tab] 800 mg PO Q8HR PRN #30 tablet 10/20/14 Unknown Rx Nitrofurantoin Madison/M-Cryst 100 mg PO Q12HR #14 capsule 12/26/15 Unknown Rx [Macrobid CAP] traMADoL [Ultram] 50 mg PO Q6HR PRN #30 tablet 12/26/15 Unknown Rx Albuterol Mdi (or & Nicu Only) 2 puff IH QID PRN #1 inhalation 04/18/18 Unknown Rx [ProAir HFA Inhaler] Azithromycin [Zithromax Z-ALEXUS] 250 mg PO DAILY #6 tablet 04/18/18 Unknown Rx Fluticasone [Flonase] 1 spray NS QDAY #1 bottle 04/18/18 Unknown Rx HYDROcodone/APAP 5-325 [[place]isle 1 each PO Q4HR PRN #12 tablet 04/18/18 Unknown Rx 5/325] predniSONE [Deltasone] 20 mg PO QDAY #5 tab 04/18/18 Unknown Rx Acetaminophen/Codeine [Tylenol 1 tab PO Q6H PRN #15 tab 08/11/18 Unknown Rx /Codeine # 3 tab] HYDROcodone/APAP 7.5-325 [[place]isle 1 each PO Q6HR PRN #15 tablet 12/28/18 Unknown Rx 7.5/325] Ondansetron [Zofran Odt] 4 mg PO Q4HR PRN #20 tab.rapdis 12/28/18 Unknown Rx Promethazine [Phenergan TAB] 25 mg PO Q6HR PRN #20 tab 12/28/18 Unknown Rx Ondansetron [Zofran Odt] 4 mg PO Q8HR PRN #14 tab.rapdis 09/21/20 Unknown Rx amLODIPine [Norvasc] 5 mg PO DAILY #30 tab 09/21/20 Unknown Rx traMADoL [Ultram] 50 mg PO Q6HR PRN #14 tablet 09/21/20 Unknown Rx Dicyclomine [Bentyl] 20 mg PO QID #10 tablet 10/10/20 Unknown Rx Ketorolac [Toradol] 10 mg PO Q6H PRN #12 tablet 10/10/20 Unknown Rx Ondansetron [Zofran Odt] 4 mg PO Q8HR #10 tab.rapdis 10/10/20 Unknown Rx ED Physical Exam - General Limitations: No Limitations General appearance: alert, in no apparent distress - Head Head exam: Present: atraumatic, normocephalic - Eye Eye exam: Present: normal appearance - ENT ENT exam: Present: mucous membranes moist - Neck Neck exam: Present: normal inspection - Respiratory Respiratory exam: Present: normal lung sounds bilaterally. Absent: respiratory distress, wheezes, rales, rhonchi - Cardiovascular Cardiovascular Exam: Present: regular rate, normal rhythm, normal heart sounds. Absent: systolic murmur, diastolic murmur, rubs, gallop - GI/Abdominal GI/Abdominal exam: Present: soft, tenderness (generalized), normal bowel sounds. Absent: distended, guarding, rebound, rigid - Extremities Exam Extremities exam: Present: normal inspection - Back Exam Back exam: Present: normal inspection - Neurological Exam Neurological exam: Present: alert, oriented X3 - Psychiatric Psychiatric exam: Present: normal affect, normal mood - Skin Skin exam: Present: warm, dry, intact, normal color. Absent: rash ED Course Vital Signs 10/09/20 10/09/20 12:38 23:35 Temperature 99.0 F Pulse Rate 90 Respiratory 20 18 Rate Blood Pressure 126/87 O2 Sat by Pulse 99 Oximetry ED Medical Decision Making - Lab Data Result diagrams: 10/09/20 13:17 10/09/20 13:17 Lab Results 10/09/20 10/09/20 Range/Units 13:17 13:17 WBC 6.6 (4.5-11.0) K/mm3 RBC 4.47 (3.65-5.03) M/mm3 Hgb 13.5 (10.1-14.3) gm/dl Hct 40.4 (30.3-42.9) % MCV 90 (79-97) fl MCH 30 (28-32) pg MCHC 33 (30-34) % RDW 14.0 (13.2-15.2) % Plt Count 261 (140-440) K/mm3 Lymph % (Auto) 41.3 H (13.4-35.0) % Madison % (Auto) 7.5 H (0.0-7.3) % Eos % (Auto) 1.4 (0.0-4.3) % Baso % (Auto) 1.0 (0.0-1.8) % Lymph # (Auto) 2.7 (1.2-5.4) K/mm3 Madison # (Auto) 0.5 (0.0-0.8) K/mm3 Eos # (Auto) 0.1 (0.0-0.4) K/mm3 Baso # (Auto) 0.1 (0.0-0.1) K/mm3 Seg Neutrophils % 48.8 (40.0-70.0) % Seg Neutrophils # 3.2 (1.8-7.7) K/mm3 Sodium 141 (137-145) mmol/L Potassium 4.2 (3.6-5.0) mmol/L Chloride 104.9 (98-107) mmol/L Carbon Dioxide 26 (22-30) mmol/L Anion Gap 14 mmol/L BUN 8 (7-17) mg/dL Creatinine 0.7 (0.6-1.2) mg/dL Estimated GFR > 60 ml/min BUN/Creatinine Ratio 11 % Glucose 84 (65-100) mg/dL Calcium 9.5 (8.4-10.2) mg/dL Total Bilirubin 0.20 (0.1-1.2) mg/dL AST 16 (5-40) units/L ALT 9 (7-56) units/L Alkaline Phosphatase 106 (35-129) units/L Total Protein 7.5 (6.3-8.2) g/dL Albumin 4.1 (3.9-5) g/dL Albumin/Globulin Ratio 1.2 % Lipase 16 (13-60) units/L - Radiology Data [facility] [address] [place] [address] Cat Scan Report Signed Patient: LUIS ENRIQUE LOWERY MR#: [id number] : 1965 Acct:[id number] Age/Sex: 55 / F ADM Date: 10/09/20 Loc: ED Attending Dr: Ordering Physician: MIGUEL PERALES MD Date of Service: 10/09/20 Procedure(s): CT abdomen pelvis w con Accession Number(s): [id number] cc: MIGUEL PERALES MD CT abdomen pelvis w con INDICATION / CLINICAL INFORMATION: Severe abd pain with a Hx of Pancreatitis. TECHNIQUE: Axial CT images were obtained through the abdomen and pelvis after IV contrast. All CT scans at this location are performed using CT dose reduction for ALARA by means of automated exposure control. COMPARISON: CT from 09/10/2020. FINDINGS: LOWER CHEST: No significant abnormality LIVER: No significant abnormality GALLBLADDER/BILIARY TREE: Stable cystic changes at the gallbladder fundus. Focal areas of gallbladder wall thickening appear increased from prior study. No significant inflammation. Gallbladder is not distended. No biliary dilatation. PANCREAS: No significant abnormality SPLEEN: No significant abnormality ADRENALS: No significant abnormality KIDNEYS / URETER: Unchanged right renal cyst with internal septations. Kidneys enhance symmetrically. No hydronephrosis. URINARY BLADDER: No significant abnormality REPRODUCTIVE ORGANS: No significant abnormality STOMACH / BOWEL: No significant abnormality. The appendix is normal in caliber. LYMPH NODES: No significant adenopathy. VASCULATURE: No significant abnormality. OTHER: No free air, free fluid, or focal fluid collection is identified. SKELETAL SYSTEM: No acute osseous findings. IMPRESSION: 1. Increased focal areas of gallbladder wall thickening with similar cystic changes at the gallbladder fundus. This may reflect adenomyomatosis. The gallbladder is not distended and there is no significant inflammation. Consider further evaluation with right upper quadrant ultrasound, as clinically indicated. 2. Otherwise, no acute abnormality of the abdomen or pelvis. 3. Other stable chronic and incidental findings, as above. Signer Name: Travon Woodward MD Signed: 10/10/2020 12:21 AM Workstation Name: MARY KATE - Medical Decision Making CT of the abdomen pelvis shows no acute abnormality. She does have some chronic cystic changes to the gallbladder wall with mild thickening however there is no pericholecystic fluid. Laboratory studies are unremarkable as well. There is unknown what findings they found at [facility] they are warm to surgery however the patient can follow-up with her doctors there. Patient started on Bentyl Zofran and Toradol be discharged home. Critical care attestation.: If time is entered above; I have spent that time in minutes in the direct care of this critically ill patient, excluding procedure time. ED Disposition Clinical Impression: Abdominal pain Qualifiers: Abdominal location: generalized Qualified Code(s): R10.84 - Generalized abdominal pain Disposition: - TO HOME OR SELFCARE Is pt being admited?: No Does the pt Need Aspirin: No Condition: Stable Instructions: Abdominal Pain (ED), Abdominal Pain, Adult, [id number] Referrals: PRIMARY CARE, [Primary Care Provider] - 3-5 Days Time of Disposition: 00:41
[2020-10-10 01:25] VITALS: BP 131/85
== END 2020-10-10 01:30 | disposition home or self-care (01) ==
LOC: ED 12:03
DX: R10.84 Generalized abdominal pain (principal); I10 Essential (primary) hypertension; J45.909 Unspecified asthma, uncomplicated; Z79.899 Other long term (current) drug therapy; Z98.890 Other specified postprocedural states; Z88.6 Allergy status to analgesic agent
CPT/HCPCS: 36415; 74177; 80053; 83690; 85025; 96374; 96375; 99284; J1885; J2270; J2405; Q9967

== ENCOUNTER 2021-06-14 10:04 | Emergency (ER) | payer MEDICARE ==
[2021-06-14] MEDS ORDERED: SODIUM CHLORIDE 0.9% 1000 ML 1,000 ML IV ONE ×2 (10:41→13:41)
[2021-06-14] MEDS ORDERED: MORPHINE 4 MG/1 ML INJ IV ONE (10:41)
[2021-06-14] MEDS ORDERED: ONDANSETRON 4 MG/2 ML INJ IV ONE ×2 (10:41→14:23)
--- NOTE | 2021-06-14 10:44 | Emergency Department Report ---
<MARICEL CAMARENA - Last Filed: 06/14/21 14:56> ED Abdominal Pain HPI - General Chief Complaint: Nausea/Vomiting/Diarrhea Stated Complaint: NAUSEA/VOMITING Time Seen by Provider: 06/14/21 10:40 Source: EMS Mode of arrival: Stretcher Limitations: No Limitations - History of Present Illness Initial Comments: This is a 55-year-old female with past medical history hypertension and seizures who presents the emerge department chief complaint of persistent nausea, vomiting and lower abdominal pain. She reports she had a similar presentation previously and was due to an obstruction in her intestines and was admitted to [facility] for 1 week. She reports she has not been able to hold down any food or fluids since yesterday. She denies any previous abdominal surgeries. She reports pain is 10 out of 10 denies any aggravating or alleviating factors. Denies associated chest pain, shortness of breath, hematemesis, melena, hematochezia, weakness or any other associated symptoms. Severity scale (0 -10): 0 - Related Data Previous Rx's Medication Instructions Recorded Last Taken Type Albuterol Mdi (or & Nicu Only) 2 puff IH QID PRN #1 inhalation 07/28/14 Unknown Rx [ProAir HFA Inhaler] Azithromycin [Zithromax Z-ALEXUS] 250 mg PO DAILY #6 tablet 07/28/14 Unknown Rx Ibuprofen [Motrin] 800 mg PO Q8H PRN #30 tablet 07/28/14 Unknown Rx Prednisone [Prednisone 10 mg 10 mg PO .TAPER #1 tab.ds.pk 07/28/14 Unknown Rx (6-Day Pack, 21 Tabs)] Cyclobenzaprine [Flexeril 10 MG 10 mg PO TID PRN #15 tablet 10/20/14 Unknown Rx TAB] Ibuprofen [Motrin 800 MG tab] 800 mg PO Q8HR PRN #30 tablet 10/20/14 Unknown Rx Nitrofurantoin [place]/M-Cryst 100 mg PO Q12HR #14 capsule 12/26/15 Unknown Rx [Macrobid CAP] traMADoL [Ultram] 50 mg PO Q6HR PRN #30 tablet 12/26/15 Unknown Rx Albuterol Mdi (or & Nicu Only) 2 puff IH QID PRN #1 inhalation 04/18/18 Unknown Rx [ProAir HFA Inhaler] Azithromycin [Zithromax Z-ALEXUS] 250 mg PO DAILY #6 tablet 04/18/18 Unknown Rx Fluticasone [Flonase] 1 spray NS QDAY #1 bottle 04/18/18 Unknown Rx HYDROcodone/APAP 5-325 [[place] 1 each PO Q4HR PRN #12 tablet 04/18/18 Unknown Rx 5/325] predniSONE [Deltasone] 20 mg PO QDAY #5 tab 04/18/18 Unknown Rx Acetaminophen/Codeine [Tylenol 1 tab PO Q6H PRN #15 tab 08/11/18 Unknown Rx /Codeine # 3 tab] HYDROcodone/APAP 7.5-325 [[place] 1 each PO Q6HR PRN #15 tablet 12/28/18 Unknown Rx 7.5/325] Ondansetron [Zofran Odt] 4 mg PO Q4HR PRN #20 tab.rapdis 12/28/18 Unknown Rx Promethazine [Phenergan TAB] 25 mg PO Q6HR PRN #20 tab 12/28/18 Unknown Rx amLODIPine [Norvasc] 5 mg PO DAILY #30 tab 09/21/20 Unknown Rx traMADoL [Ultram] 50 mg PO Q6HR PRN #14 tablet 09/21/20 Unknown Rx Dicyclomine [Bentyl] 20 mg PO QID #10 tablet 10/10/20 Unknown Rx Ketorolac [Toradol] 10 mg PO Q6H PRN #12 tablet 10/10/20 Unknown Rx Ondansetron [Zofran Odt] 4 mg PO Q8HR #10 tab.rapdis 10/10/20 Unknown Rx Dicyclomine [Bentyl] 20 mg PO QID #20 tablet 06/14/21 Unknown Rx Ondansetron [Zofran ODT TAB] 4 mg PO Q8HR PRN #16 tab.rapdis 06/14/21 Unknown Rx Ondansetron [Zofran Odt] 4 mg PO Q8HR #30 tab.rapdis 06/14/21 Unknown Rx Promethazine [Phenergan SUPPOS] 25 mg AL QHS PRN #30 06/14/21 Unknown Rx Allergies Allergy/AdvReac Type Severity Reaction Status Date / Time acetaminophen [From Tylenol] Allergy Unknown Verified 09/14/20 14:48 aspirin Allergy Hives Verified 09/14/20 14:48 ED Review of Systems Comment: All other systems reviewed and negative Constitutional: denies: chills, fever Eyes: denies: eye pain, eye discharge, vision change ENT: denies: ear pain, throat pain Respiratory: denies: cough, shortness of breath, wheezing Cardiovascular: denies: chest pain, palpitations Endocrine: no symptoms reported Gastrointestinal: as per HPI, abdominal pain, nausea, vomiting. denies: diarrhea Genitourinary: denies: urgency, dysuria, discharge Musculoskeletal: denies: back pain, joint swelling, arthralgia Skin: denies: rash, lesions Neurological: denies: headache, weakness, paresthesias Psychiatric: denies: anxiety, depression Hematological/Lymphatic: denies: easy bleeding, easy bruising ED Past Medical Hx - Past Medical History Hx Hypertension: Yes Hx Asthma: Yes Additional medical history: CHRONIC BACK PAIN - Surgical History Additional Surgical History: X 3. RIGHT ARM SURGERY - Social History Smoking Status: Never Smoker Substance Use Type: None - Medications Home Medications: Home Medications Medication Instructions Recorded Confirmed Last Taken Type Albuterol Mdi (or & Nicu Only) 2 puff IH QID PRN #1 inhalation 07/28/14 Unknown Rx [ProAir HFA Inhaler] Azithromycin [Zithromax Z-ALEXUS] 250 mg PO DAILY #6 tablet 07/28/14 Unknown Rx Ibuprofen [Motrin] 800 mg PO Q8H PRN #30 tablet 07/28/14 Unknown Rx Prednisone [Prednisone 10 mg 10 mg PO .TAPER #1 tab.ds.pk 07/28/14 Unknown Rx (6-Day Pack, 21 Tabs)] Cyclobenzaprine [Flexeril 10 MG 10 mg PO TID PRN #15 tablet 10/20/14 Unknown Rx TAB] Ibuprofen [Motrin 800 MG tab] 800 mg PO Q8HR PRN #30 tablet 10/20/14 Unknown Rx Nitrofurantoin [place]/M-Cryst 100 mg PO Q12HR #14 capsule 12/26/15 Unknown Rx [Macrobid CAP] traMADoL [Ultram] 50 mg PO Q6HR PRN #30 tablet 12/26/15 Unknown Rx Albuterol Mdi (or & Nicu Only) 2 puff IH QID PRN #1 inhalation 04/18/18 Unknown Rx [ProAir HFA Inhaler] Azithromycin [Zithromax Z-ALEXUS] 250 mg PO DAILY #6 tablet 04/18/18 Unknown Rx Fluticasone [Flonase] 1 spray NS QDAY #1 bottle 04/18/18 Unknown Rx HYDROcodone/APAP 5-325 [[place] 1 each PO Q4HR PRN #12 tablet 04/18/18 Unknown Rx 5/325] predniSONE [Deltasone] 20 mg PO QDAY #5 tab 04/18/18 Unknown Rx Acetaminophen/Codeine [Tylenol 1 tab PO Q6H PRN #15 tab 08/11/18 Unknown Rx /Codeine # 3 tab] HYDROcodone/APAP 7.5-325 [[place] 1 each PO Q6HR PRN #15 tablet 12/28/18 Unknown Rx 7.5/325] Ondansetron [Zofran Odt] 4 mg PO Q4HR PRN #20 tab.rapdis 12/28/18 Unknown Rx Promethazine [Phenergan TAB] 25 mg PO Q6HR PRN #20 tab 12/28/18 Unknown Rx amLODIPine [Norvasc] 5 mg PO DAILY #30 tab 09/21/20 Unknown Rx traMADoL [Ultram] 50 mg PO Q6HR PRN #14 tablet 09/21/20 Unknown Rx Dicyclomine [Bentyl] 20 mg PO QID #10 tablet 10/10/20 Unknown Rx Ketorolac [Toradol] 10 mg PO Q6H PRN #12 tablet 10/10/20 Unknown Rx Ondansetron [Zofran Odt] 4 mg PO Q8HR #10 tab.rapdis 10/10/20 Unknown Rx Dicyclomine [Bentyl] 20 mg PO QID #20 tablet 06/14/21 Unknown Rx Ondansetron [Zofran ODT TAB] 4 mg PO Q8HR PRN #16 tab.rapdis 06/14/21 Unknown Rx Ondansetron [Zofran Odt] 4 mg PO Q8HR #30 tab.rapdis 06/14/21 Unknown Rx Promethazine [Phenergan SUPPOS] 25 mg AL QHS PRN #30 06/14/21 Unknown Rx ED Physical Exam - General Limitations: No Limitations General appearance: alert, in distress - Head Head exam: Present: atraumatic, normocephalic - Eye Eye exam: Present: normal appearance, PERRL, EOMI - ENT ENT exam: Present: normal exam, normal orophraynx, mucous membranes moist - Neck Neck exam: Present: normal inspection. Absent: tenderness, meningismus - Respiratory Respiratory exam: Present: normal lung sounds bilaterally. Absent: respiratory distress, wheezes, rales, rhonchi, stridor - Cardiovascular Cardiovascular Exam: Present: regular rate, normal rhythm. Absent: systolic murmur, diastolic murmur, rubs, gallop - GI/Abdominal GI/Abdominal exam: Present: soft, tenderness (Generalized tenderness across lower abdomen), normal bowel sounds. Absent: distended, guarding, rebound - Extremities Exam Extremities exam: Present: normal inspection, full ROM, normal capillary refill. Absent: tenderness, calf tenderness - Back Exam Back exam: Present: normal inspection, full ROM. Absent: tenderness, CVA tenderness (R), CVA tenderness (L) - Neurological Exam Neurological exam: Present: alert, oriented X3, normal gait - Psychiatric Psychiatric exam: Present: normal affect, normal mood - Skin Skin exam: Present: warm, dry, intact, normal color. Absent: rash ED Medical Decision Making - Lab Data Result diagrams: 06/14/21 11:39 06/14/21 11:39 Lab Results 06/14/21 06/14/21 06/14/21 Range/Units 11:39 11:39 11:39 WBC 7.3 (4.5-11.0) K/mm3 RBC 4.88 (3.65-5.03) M/mm3 Hgb 14.0 (10.1-14.3) gm/dl Hct 43.1 H (30.3-42.9) % MCV 88 (79-97) fl MCH 29 (28-32) pg MCHC 33 (30-34) % RDW 13.5 (13.2-15.2) % Plt Count 342 (140-440) K/mm3 Lymph % (Auto) 13.6 (13.4-35.0) % [place] % (Auto) 3.8 (0.0-7.3) % Eos % (Auto) 0.1 (0.0-4.3) % Baso % (Auto) 0.6 (0.0-1.8) % Lymph # (Auto) 1.0 L (1.2-5.4) K/mm3 [place] # (Auto) 0.3 (0.0-0.8) K/mm3 Eos # (Auto) 0.0 (0.0-0.4) K/mm3 Baso # (Auto) 0.0 (0.0-0.1) K/mm3 Seg Neutrophils % 81.9 H (40.0-70.0) % Seg Neutrophils # 6.0 (1.8-7.7) K/mm3 Sodium 145 (137-145) mmol/L Potassium 3.4 L (3.6-5.0) mmol/L Chloride 105.8 (98-107) mmol/L Carbon Dioxide 22 (22-30) mmol/L Anion Gap 21 mmol/L BUN 10 (7-17) mg/dL Creatinine 0.9 (0.6-1.2) mg/dL Estimated GFR > 60 ml/min BUN/Creatinine Ratio 11 % Glucose 124 H (65-100) mg/dL Lactic Acid 2.80 H* (0.7-2.0) mmol/L Calcium 9.2 (8.4-10.2) mg/dL Total Bilirubin 0.60 (0.1-1.2) mg/dL AST 19 (5-40) units/L ALT 9 (7-56) units/L Alkaline Phosphatase 136 H (35-129) units/L Total Protein 7.5 (6.3-8.2) g/dL Albumin 4.5 (3.9-5) g/dL Albumin/Globulin Ratio 1.5 % Lipase 21 (13-60) units/L - Radiology Data Radiology results: report reviewed CT ABDOMEN AND PELVIS WITH CONTRAST HISTORY: severe lower abdominal pain, N/V/ D OMNI 300 100 ML COMPARISON: Prior CT on 10/09/2020 TECHNIQUE: Routine abdominal and pelvic CT exam performed following intravenous contrast administration.. All CT scans at this location are performed using CT dose reduction for ALARA by means of automated exposure control. FINDINGS: CT ABDOMEN: Lung Bases: No significant abnormality. Liver: No significant abnormality. Biliary: Unchanged adenomyomatosis in the inferior bladder fundus wall. No acute findings. Spleen: No significant abnormality. Unenlarged. Pancreas: No significant abnormality. Adrenals: No significant abnormality. Kidneys: Unchanged minimally complex right lower pole renal cyst. Lymphatics: No lymphadenopathy. Vasculature: No significant abnormality. Bowel/Peritoneum: No significant abnormality. No free air. No free fluid. Normal appendix. CT PELVIC: : No significant abnormality. Lymphatics: No lymphadenopathy. Osseous Structures: No aggressive appearing osseous lesions. Additional Findings: None IMPRESSION: 1. No acute findings or findings to explain the patient's symptoms. No adverse change from the prior exam. Signer Name: Param Rollins MD Signed: 06/14/2021 2:17 PM Workstation Name: [id number] - Medical Decision Making Patient presents emerged department chief complaint of abdominal pain and nausea and vomiting. Lab work returned relatively unremarkable. Lactic acid was ordered due to her reporting she had a history of a small bowel obstruction in the past and was slightly elevated at 2.8. Patient was given 2 L of IV fluid and is pending repeat lactic acid. CT scan was unremarkable. Repeat abdominal exam was benign. Patient is tolerating p.o. fluids. I will sign the patient out to oncoming provider pending repeat lactic acid. I did discuss with attending physician Dr. Duque who agreed if the repeat lactic was normal patient was stable to go home. - Differential Diagnosis Small obstruction, enteritis, colitis, diverticulitis ED Disposition Clinical Impression: Nonspecific abdominal pain Nausea & vomiting Qualifiers: Vomiting type: unspecified Qualified Code(s): R11.2 - Nausea with vomiting, unspecified Disposition: 01 HOME / SELF CARE / HOMELESS Is pt being admited?: No Condition: Stable Instructions: Abdominal Pain, Adult Prescriptions: Promethazine [Phenergan SUPPOS] 25 mg AL QHS PRN #30 PRN Reason: Nausea And Vomiting Dicyclomine [Bentyl] 20 mg PO QID #20 tablet Ondansetron [Zofran ODT TAB] 4 mg PO Q8HR PRN #16 tab.rapdis PRN Reason: Nausea And Vomiting Ondansetron [Zofran Odt] 4 mg PO Q8HR #30 tab.rapdis Referrals: JOHN LEWIS MD [Primary Care Provider] - 3-5 Days <SAMIA KIDD - Last Filed: 06/14/21 21:46> ED Review of Systems ROS: Stated complaint: NAUSEA/VOMITING Other details as noted in HPI ED Course Vital Signs 06/14/21 06/14/21 06/14/21 10:09 13:41 14:30 Temperature 98.3 F Pulse Rate 76 54 L Respiratory 16 18 16 Rate Blood Pressure Blood Pressure 160/90 [Right] O2 Sat by Pulse 97 97 100 Oximetry 06/14/21 06/14/21 06/14/21 14:46 15:00 15:15 Temperature 98.3 F Pulse Rate 66 53 L Respiratory 11 L 21 Rate Blood Pressure 167/75 178/88 Blood Pressure [Right] O2 Sat by Pulse 100 100 Oximetry 06/14/21 06/14/21 06/14/21 15:16 15:30 15:46 Temperature Pulse Rate 61 60 87 Respiratory 11 L 11 L 12 Rate Blood Pressure 171/84 156/88 171/85 Blood Pressure [Right] O2 Sat by Pulse 100 100 100 Oximetry 06/14/21 06/14/21 06/14/21 16:00 16:16 16:30 Temperature Pulse Rate 58 L 64 54 L Respiratory 15 10 L 14 Rate Blood Pressure 155/65 156/75 167/88 Blood Pressure [Right] O2 Sat by Pulse 100 100 100 Oximetry 06/14/21 06/14/21 06/14/21 16:46 17:00 17:16 Temperature Pulse Rate 88 61 56 L Respiratory 21 15 21 Rate Blood Pressure 151/91 143/86 143/86 Blood Pressure [Right] O2 Sat by Pulse 100 100 100 Oximetry 06/14/21 06/14/21 06/14/21 17:30 17:46 18:00 Temperature Pulse Rate 55 L 59 L 57 L Respiratory 13 20 17 Rate Blood Pressure 168/85 160/82 169/81 Blood Pressure [Right] O2 Sat by Pulse 100 100 100 Oximetry 06/14/21 06/14/21 06/14/21 18:16 18:30 18:34 Temperature Pulse Rate 61 62 62 Respiratory 11 L 15 15 Rate Blood Pressure 174/76 166/74 Blood Pressure 166/74 [Right] O2 Sat by Pulse 100 100 100 Oximetry 06/14/21 21:11 Temperature 98.2 F Pulse Rate 78 Respiratory 20 Rate Blood Pressure Blood Pressure 124/78 [Right] O2 Sat by Pulse 98 Oximetry ED Medical Decision Making - Lab Data Result diagrams: 06/14/21 11:39 06/14/21 11:39 - Medical Decision Making After fluids, lactic acid now 1.9. Patient states she has been taking fentanyl and Roxicodone unprescribed for months now and she has not had any today. I suspect patient is having opiate withdrawals today. She is otherwise well- appearing, her vitals are stable, she is stable for discharge home. Discussed signs and symptoms that should prompt immediate return to ED with patient who verbalized understanding Critical care attestation.: If time is entered above; I have spent that time in minutes in the direct care of this critically ill patient, excluding procedure time.
[2021-06-14 12:12] LABS: Basophils % (Auto) 0.6 % (0.0-1.8); Eosinophils % (Auto) 0.1 % (0.0-4.3); Hematocrit 43.1 % (30.3-42.9); Lymphocytes % (Auto) 13.6 % (13.4-35.0); Mean Corpuscular HGB Conc 33 % (30-34); Mean Corpuscular Volume 88 fl (79-97); Monocytes # (Auto) 0.3 K/mm3 (0.0-0.8); Monocytes % (Auto) 3.8 % (0.0-7.3); Platelet Count 342 K/mm3 (140-440); Red Blood Count 4.88 M/mm3 (3.65-5.03); Red Cell Distribution Width 13.5 % (13.2-15.2)
[2021-06-14 12:29] LABS: Alanine Aminotransferase 9 units/L (7-56); Albumin 4.5 g/dL (3.9-5); BUN/Creatinine Ratio 11; Blood Urea Nitrogen 10 mg/dL (7-17); Calcium 9.2 mg/dL (8.4-10.2); Hemolysis Index 24
[2021-06-14] MEDS ORDERED: PIPERACIL/TAZOBACTA 4.5/NS 100 4.5 GM/100 ML VIAL IV ONE (13:41)
--- NOTE | 2021-06-14 14:22 | Cat Scan Report ---
CT ABDOMEN AND PELVIS WITH CONTRAST HISTORY: severe lower abdominal pain, N/V/ D OMNI 300 100 ML COMPARISON: Prior CT on 10/09/2020 TECHNIQUE: Routine abdominal and pelvic CT exam performed following intravenous contrast administrat ion.. All CT scans at this location are performed using CT dose reduction for ALARA by means of autom ated exposure control. FINDINGS: CT ABDOMEN: Lung Bases: No significant abnormality. Liver: No significant abnormality. Biliary: Unchanged adenomyomatosis in the inferior bladder fundus wall. No acute findings. Spleen: No significant abnormality. Unenlarged. Pancreas: No significant abnormality. Adrenals: No significant abnormality. Kidneys: Unchanged minimally complex right lower pole renal cyst. Lymphatics: No lymphadenopathy. Vasculature: No significant abnormality. Bowel/Peritoneum: No significant abnormality. No free air. No free fluid. Normal appendix. CT PELVIC: : No significant abnormality. Lymphatics: No lymphadenopathy. Osseous Structures: No aggressive appearing osseous lesions. Additional Findings: None IMPRESSION: 1. No acute findings or findings to explain the patient's symptoms. No adverse change from the prior exam. Signer Name: Param Rollins MD Signed: 06/14/2021 2:17 PM Workstation Name: [id number]
[2021-06-14 15:06] LABS: Bacteria,Urine 1+ /HPF (Negative); Bilirubin,Urine NEG (Negative); Blood,Urine MOD (Negative); Color,Urine Straw (Yellow); Mucus,Urine FEW /HPF; Protein,Urine <15 mg/dL mg/dL (Negative); Urobilinogen,Urine < 2.0 mg/dL (<2.0)
[2021-06-14] MEDS ORDERED: METOCLOPRAMIDE 10 MG/2 ML INJ IV ONE (17:36)
[2021-06-14] MEDS ORDERED: diphenhydrAMINE 50 MG/ML VIAL IV ONE (17:36)
[2021-06-14 22:16] VITALS: BP 148/95
== END 2021-06-14 22:15 | disposition home or self-care (01) ==
LOC: ED 10:04
DX: R10.9 Unspecified abdominal pain (principal); R11.2 Nausea with vomiting, unspecified; I10 Essential (primary) hypertension; J45.909 Unspecified asthma, uncomplicated
CPT/HCPCS: 36415; 74177; 80053; 81001; 82140; 83690; 85025; 87040; 96361; 96365; 96375; 96376; 99284; J1200; J2270; J2405; J2543; J2765; J7030; Q9967; 99283; Q0162